=== PATIENT | male | born 1960 | race American Indian/Alaskan Native ===

== ENCOUNTER 2017-06-05 19:00 | Inpatient (IN) | payer OTHER ==
--- NOTE | 2017-06-05 23:46 | Emergency Department Report ---
ED Extremity Problem HPI - General Chief complaint: Wound/Laceration Stated complaint: INFECTED FOOT Time Seen by Provider: 06/05/17 22:03 Source: patient Mode of arrival: Ambulatory Limitations: No Limitations - History of Present Illness Initial comments: Pt presents to ED with worsening of swelling of left leg and foot. Pt has chronic venous insuffiency of left leg and foot. Pt has chronic ulcer on his left foot. He states hat over the last 2 days, swelling of his left leg and foot has gone worse. Pt recalls having some itching around the distal 3rd aspect of his left leg and has developed some tenderness, erythemia around site of pruritus. pt deneis SOB, no N/V/D, no fever, no chills, no rigors. Past medical hx his only significant for Hypertension MD Complaint: extremity pain, extremity swelling -: Gradual (pt has chronic swelling of his left leg and foot. Over the last 2 days, it was gone worse) -: No arthralgia, No associated dyspnea, No associated chest pain Radiation: none Severity scale (0 -10): 7 Quality: aching Consistency: constant Improves with: nothing Worsens with: nothing Associated Symptoms: rash. denies: denies other symptoms, chest pain, shortness of breath, fever, myalgias, arthralgias - Related Data Allergies Allergy/AdvReac Type Severity Reaction Status Date / Time No Known Allergies Allergy Unverified 06/05/17 20:21 ED Review of Systems ROS: Stated complaint: INFECTED FOOT Other details as noted in HPI Comment: All other systems reviewed and negative Constitutional: weakness. denies: chills, diaphoresis, fever, malaise Eyes: denies: eye pain, eye discharge, vision change ENT: denies: ear pain, throat pain, dental pain, hearing loss Respiratory: denies: cough, orthopnea, shortness of breath, wheezing Cardiovascular: denies: chest pain, palpitations, dyspnea on exertion, orthopnea , edema, syncope, paroxysmal nocturnal dyspnea Endocrine: no symptoms reported. denies: excessive sweating, flushing, intolerance to cold, increased hunger Gastrointestinal: denies: abdominal pain, nausea, vomiting, diarrhea, constipation, melena Genitourinary: denies: urgency, dysuria, frequency, hematuria, discharge Musculoskeletal: as per HPI, other (swelling of left leg and foot) Skin: as per HPI, pruritus, other (swelling of left leg and foot) Neurological: denies: headache, weakness, numbness, paresthesias, confusion ED Past Medical Hx - Past Medical History Previous Medical History?: Yes Hx Hypertension: Yes - Surgical History Past Surgical History?: Yes - Social History Smoking Status: Never Smoker ED Physical Exam - General Limitations: No Limitations General appearance: alert, in no apparent distress - Head Head exam: Present: atraumatic, normocephalic - Eye Eye exam: Present: normal appearance, PERRL, EOMI. Absent: scleral icterus, conjunctival injection, nystagmus - ENT ENT exam: Present: normal exam, normal orophraynx, mucous membranes moist - Neck Neck exam: Present: normal inspection, full ROM. Absent: tenderness, meningismus, lymphadenopathy, thyromegaly - Respiratory Respiratory exam: Present: normal lung sounds bilaterally. Absent: respiratory distress, wheezes, rales, rhonchi, chest wall tenderness, accessory muscle use, decreased breath sounds, prolonged expiratory - Cardiovascular Cardiovascular Exam: Present: regular rate, normal rhythm, normal heart sounds. Absent: bradycardia, tachycardia, systolic murmur, diastolic murmur - GI/Abdominal GI/Abdominal exam: Present: soft, normal bowel sounds. Absent: distended, tenderness, guarding, rebound, hyperactive bowel sounds, hypoactive bowel sounds , organomegaly, mass - Rectal Rectal exam: Present: deferred - Expanded Lower Extremity Exam Left Hip exam: Present: normal inspection, full ROM. Absent: tenderness, laceration , ecchymosis Upper Leg exam: Present: normal inspection, full ROM. Absent: abrasion, laceration Knee exam: Present: full ROM, swelling. Absent: normal inspection, abrasion, laceration, erythema, effusion Lower Leg exam: Present: tenderness, swelling (lymphedema of left leg and foot) , erythema. Absent: deformity, crepidus Ankle exam: Present: tenderness, swelling (lymphedema of left ankle) Foot/Toe exam: Present: tenderness, swelling (left great toe is swollen it ulcers seen on it), erythema. Absent: amputation, calcaneal tenderness Neuro vascular tendon exam: Present: pulse deficit (decrease dorsalis pedis pulses, left foot), abnormal cap refill, pallor - Neurological Exam Neurological exam: Present: alert, oriented X3, CN II-XII intact ED Course Vital Signs 06/05/17 20:00 Temperature 98.7 F Pulse Rate 80 Respiratory 18 Rate Blood Pressure 150/73 O2 Sat by Pulse 99 Oximetry - Consultations Consultation #1: 06/06/17 01:[address] Davalos, she accepts pt's admission ED Medical Decision Making - Lab Data Result diagrams: 06/05/17 23:31 06/05/17 23:31 - Radiology Data Radiology results: report reviewed, image reviewed Critical Care Time: No Critical care attestation.: If time is entered above; I have spent that time in minutes in the direct care of this critically ill patient, excluding procedure time. ED Disposition Clinical Impression: Osteomyelitis of toe of left foot, Cellulitis of left leg Disposition: OP ADMIT IP TO THIS HOSP Is pt being admited?: Yes Does the pt Need Aspirin: No Condition: Stable Referrals: PRIMARY CARE, [Primary Care Provider] - 3-5 Days Time of Disposition: 01:37
[2017-06-06 00:03] LABS: Basophils % (Auto) 2.2 % (0.0-1.8); Hematocrit 40.9 % (35.5-45.6); Hemoglobin 13.7 gm/dl (11.8-15.2); Mean Corpuscular HGB Conc 34 % (32-34); Mean Corpuscular Hemoglobin 29 pg (28-32); Mean Corpuscular Volume 87 fl (84-94); Platelet Count 427 K/mm3 (140-440); Red Blood Count 4.71 M/mm3 (3.65-5.03); Red Cell Distribution Width 13.5 % (13.2-15.2); White Blood Count 10.6 K/mm3 (4.5-11.0)
[2017-06-06 00:10] LABS: Alanine Aminotransferase 14 units/L (7-56); Albumin 3.7 g/dL (3.9-5); Albumin/Globulin Ratio 0.8 %; Alkaline Phosphatase 83 units/L (35-129); Anion Gap 20 mmol/L; BUN/Creatinine Ratio 16; Blood Urea Nitrogen 18 mg/dL (9-20); Calcium 9.3 mg/dL (8.4-10.2); Carbon Dioxide 26 mmol/L (22-30); Glucose 95 mg/dL (75-100); Potassium 4.6 mmol/L (3.6-5.0); Sodium 143 mmol/L (137-145); Total Protein 8.2 g/dL (6.3-8.2)
--- NOTE | 2017-06-06 00:49 | XRay Report ---
FINAL REPORT EXAM: XR TIBIA FIBULA 2V LT HISTORY: infection, swelling of left foot AND LEG TECHNIQUE: Tibia-fibula left two views 4 images PRIORS: None. FINDINGS: Bone mineralization appears within normal limits. No acute fracture or subluxation is identified. Soft tissue swelling is seen over the distal left leg and ankle. IMPRESSION: 1. No acute osseous abnormality is identified. 2. There is soft tissue swelling in the left leg and ankle. This may be related to cellulitis given the history provided.
--- NOTE | 2017-06-06 00:53 | XRay Report ---
FINAL REPORT EXAM: XR FOOT 3+V LT HISTORY: SWOLLEN, INFECTED LEFT FOOT, let great toe infecti TECHNIQUE: Left foot three views 3 images PRIORS: None. FINDINGS: Bone mineralization appears within normal limits. There is loss of cortical bone in the distal aspect of the distal 1st phalanx. There is diffuse soft tissue swelling which appears worse in the great toe. IMPRESSION: 1. Findings are consistent with osteomyelitis involving the distal 1st phalanx. 2. There is diffuse soft tissue swelling in the foot extending into the toes, worst in great toe. This is consistent with infection/cellulitis.
[2017-06-06] MEDS ORDERED: VANCOMYCIN VIAL IV ONE (01:31)
[2017-06-06] MEDS ORDERED: CLEOCIN 900 MG/50 mL 900 MG/50 ML BAG IV ONE (01:35)
[2017-06-06] MEDS ORDERED: MILK OF MAGNESIA PO PRN (01:50)
[2017-06-06] MEDS ORDERED: ZOFRAN IV PRN (01:50)
[2017-06-06] MEDS ORDERED: DULCOLAX PR PRN (01:50)
[2017-06-06] MEDS ORDERED: PERCOCET 5/325 PO PRN (01:50)
[2017-06-06] MEDS ORDERED: VANCOMYCIN PHARMACY TO DOSE IV SCH (02:00)
--- NOTE | 2017-06-06 02:01 | History and Physical Report ---
History of Present Illness Date of examination: 06/06/17 History of present illness: 57-year-old man with a history of hypertension, chronic venous insufficiency of the left foot comes emergency room because of the last 2 days he has increased swelling of the left leg. Patient states he was taking off some skin off the left great toe when he noticed the changes 2 days later. He has taken antibiotics for the left toe total of 3 times, clindamycin was the most recent, a few weeks ago. Is at the chronic ulcer of the toe for 2-1/2 years and has not completely healed. He denies fever or chills Review Of Systems: Constitutional: no weight loss Ears, eyes, nose, mouth and throat: no nasal congestion, no nasal discharge, no sinus pressure, blurry vision, diplopia Neck: No neck pain or rigidity. Cardiovascular: chest pain, orthopnea, palpitations Respiratory: No shortness of breath, cough Gastrointestinal: abdominal pain, hematochezia Genitourinary : no dysuria, frequency , hematuria Musculoskeletal: no muscle ache Integumentary: no rash, no pruritis Neurological: no parathesias, focal weakness Endocrine: no cold or heat intolerance, no polyuria or polydipsia Hematologic/Lymphatic: no easy bruising, no easy bleeding, no gland swelling Allergic/Immunologic: no urticaria, no angioedema. PAST MEDICAL HISTORY: hypertension PAST SURGICAL HISTORY:hernia repair FAIMLY HISTORY: hypertension SOCIAL HISTORY: Denies alcohol, tobacco, drugs Medications and Allergies Allergies Allergy/AdvReac Type Severity Reaction Status Date / Time No Known Allergies Allergy Verified 06/06/17 02:49 Active Meds: Active Medications Acetaminophen (Tylenol) 650 mg PO Q4H PRN PRN Reason: Pain MILD(1-3)/Fever >100.5/SANTIAGO Bisacodyl (Dulcolax) 10 mg [place] QDAY PRN PRN Reason: Constipation unrelieved by MOM Enoxaparin Sodium (Lovenox) 30 mg SUB-Q QDAY [facility] Clindamycin HCl (Cleocin 900 Mg/50 Ml) 900 mg in 50 mls @ 100 mls/hr IV ONCE ONE Stop: 06/06/17 02:04 Vancomycin HCl 2,000 mg/ (Sodium Chloride) 520 mls @ 250 mls/hr IV Q12H [facility] Vancomycin HCl (Vancomycin/Ns 1 Gm/250 Ml) 1 gm in 250 mls @ 167.007 mls/hr IV Q12H [facility] PRN Reason: Protocol Magnesium Hydroxide (Milk Of Magnesia) 30 ml PO Q4H PRN PRN Reason: Constipation Ondansetron HCl (Zofran) 4 mg IV Q8H PRN PRN Reason: N/V unrelieved by Reglan Oxycodone/Acetaminophen (Percocet 5/325) 1 tab PO Q6H PRN PRN Reason: Pain, Moderate (4-6) Vancomycin HCl (Vancomycin Pharmacy To Dose) 1 each IV PKCONSULT JOHNATHON PRN Reason: Protocol Exam - Physical Exam Narrative exam: Gen. appearance: Patient lying in bed in no acute distress HEENT: Normocephalic/atraumatic, pupils equal round reactive to light, extra alkaline movement intact, no scleral icterus, no JVD or thyromegaly or nodule, neck is supple, mucous membrane moist, no erythema or exudate Heart: S1-S2, regular rate and rhythm Lungs: Clear to auscultation bilateral breathing comfortable Abdomen: Positive bowel sounds, nontender, nondistended, no organomegaly Extremities: Left leg diffusely swollen, anterior leg warmth to touch, discolored, let great toe swolle, + ulcer Neuro:: Oriented 3 , cranial nerves II-12 intact, speech, motor intact Skin: No rash, nodules, warm dry - Constitutional Vitals: Temp Pulse Resp BP Pulse Ox 98.7 F 80 18 150/73 99 06/05/17 20:00 06/05/17 20:00 06/05/17 20:00 06/05/17 20:00 06/05/17 20:00 Results - Labs CBC & Chem 7: 06/07/17 04:20 06/07/17 04:20 Labs: Abnormal lab results 06/05/17 06/05/17 Range/Units 23:31 23:31 [place] % (Auto) 11.0 H (0.0-7.3) % Baso % (Auto) 2.2 H (0.0-1.8) % [place] # 1.2 H (0.0-0.8) K/mm3 Baso # 0.2 H (0.0-0.1) K/mm3 Albumin 3.7 L (3.9-5) g/dL Assessment and Plan xray of foot, tibula/fibula reviewed Assessment Cellulitis of the left leg Osteomyelitis of the left great toe Venous insufficiency Hypertension Plan Admit to medicine Start Iv vancomycin, follow cultures Consult ID, start percocet, DVT prophalaxis follw dopple of leg
[2017-06-06] MEDS ORDERED: APRESOLINE IV PRN ×2 (02:04→02:22)
[2017-06-06] MEDS: VANCOMYCIN 2,000 MG in NACL 0.9% 500 ML 500 ML IV SCH ×2 (04:24→15:13)
[2017-06-06] MEDS: LOVENOX SUB-Q SCH (09:49)
[2017-06-06] MEDS ORDERED: VANCOMYCIN/NS 1 GM/250 ML 1 GM/250 ML BAG IV SCH (14:00)
--- NOTE | 2017-06-06 16:11 | Event Note ---
Date: 06/06/17 Patient seen and examined Continue to complain of left foot swelling Noted extra findings significant for left foot osteomyelitis A continue present antibiotics, will obtain MRI of left foot and orthopedic consult We'll continue further assessment and plan as dictated in H&P
[2017-06-06] MEDS ORDERED: ANTIVERT PO PRN (16:32)
[2017-06-07] MEDS: VANCOMYCIN 2,000 MG in NACL 0.9% 500 ML 500 ML IV SCH ×2 (04:07→16:52)
[2017-06-07 04:52] LABS: Basophils % (Auto) 2.2 % (0.0-1.8); Eosinophils % (Auto) 4.3 % (0.0-4.3); Hematocrit 37.5 % (35.5-45.6); Hemoglobin 12.8 gm/dl (11.8-15.2); Mean Corpuscular HGB Conc 34 % (32-34); Mean Corpuscular Hemoglobin 29 pg (28-32); Mean Corpuscular Volume 86 fl (84-94); Platelet Count 380 K/mm3 (140-440); Red Blood Count 4.35 M/mm3 (3.65-5.03); Red Cell Distribution Width 13.2 % (13.2-15.2); White Blood Count 8.1 K/mm3 (4.5-11.0)
[2017-06-07 05:09] LABS: Anion Gap 16 mmol/L; BUN/Creatinine Ratio 14; Blood Urea Nitrogen 14 mg/dL (9-20); Calcium 8.3 mg/dL (8.4-10.2); Carbon Dioxide 25 mmol/L (22-30); Glucose 116 mg/dL (75-100); Potassium 4.1 mmol/L (3.6-5.0); Sodium 143 mmol/L (137-145)
[2017-06-07] MEDS ORDERED: NACL ONE (10:02)
--- NOTE | 2017-06-07 10:06 | Vascular Lab Report ---
Left Lower Extremity Venous Duplex Study: Reason for Exam: Swelling of the left lower extremity. Comments on the Right: A limited duplex study was done of the proximal veins of the right lower extremity. All veins visualized are freely compressible without evidence of internal echogenicity. Flow is spontaneous and phasic throughout. No evidence of acute or chronic thrombus is seen in any of the vessels visualized. Comments on the Left: All veins visualized are freely compressible without evidence of internal echogenicity. Flow is spontaneous and phasic throughout. No evidence of acute or chronic thrombus is seen in any of the vessels visualized. Impression: No evidence of acute or chronic deep venous thrombosis in the left lower extremity.
--- NOTE | 2017-06-07 12:21 | Cat Scan Report ---
CT LOWER EXTREMITY LEFT WITH CONTRAST History: Osteomyelitis of left foot. Technique: Helical CT following IV contrast through the left ankle and foot. Sagittal and coronal reformatted images. Findings: Correlation is made with a left foot films dated 06/05/17. There is diffuse nonspecific soft tissue swelling in the distal left lower extremity. No soft tissue gas or encapsulated abscess. There is bony destruction of the distal phalanx of the great toe consistent with osteomyelitis. There is suggestion of unorganized fluid adjacent to the distal tip in the great toe which may represent a very early abscess. This measures less than 1 cm. The remaining only structures are intact. No additional areas of osteomyelitis are suspected. Impression: Osteomyelitis, distal phalanx, left great toe. Please see above. Cellulitis.
[2017-06-07] MEDS: LOVENOX SUB-Q SCH (12:38)
[2017-06-07] MEDS: ZOSYN/NS 4.5GM/100ML 4.5 GM/100 ML VIAL IV SCH ×2 (12:40→23:55)
[2017-06-07] MEDS ORDERED: ZOSYN/NS 3.375GM/50ML 3.375 GM/50 ML BAG IV SCH (14:00)
--- NOTE | 2017-06-07 16:42 | Progress Note ---
Assessment and Plan /Cellulitis of the left leg - cont van and zosyn - blood cx negative - negative DVT on venous doppler /Osteomyelitis of the left great toe - f/u Ct leg to ensure extent of the infection - ortho consulted /Hypertension - monitor off BP med now /DVT prophalaxis - lovenox Brief History: 57-year-old man with a history of hypertension, chronic venous insufficiency of the left foot comes emergency room because of the last 2 days he has increased swelling of the left leg. Subjective Date of service: 06/07/17 Interval history: Pt seen and examined Could not do MRI as his leg/foot did not fit in the machine Got CT leg w/contrast today states swelling has gone down Objective - Exam Narrative Exam: Gen. appearance: Patient lying in bed in no acute distress HEENT: Normocephalic/atraumatic, pupils equal round reactive to light, extra alkaline movement intact, no scleral icterus, no JVD or thyromegaly or nodule, neck is supple, mucous membrane moist, no erythema or exudate Heart: S1-S2, regular rate and rhythm Lungs: Clear to auscultation bilateral breathing comfortable Abdomen: Positive bowel sounds, nontender, nondistended, no organomegaly Extremities: Left leg diffusely swollen, anterior leg warmth to touch, discolored, let great toe swolle, + ulcer Neuro:: Oriented 3 , cranial nerves II-12 intact, speech, motor intact Skin: No rash, nodules, warm dry - Constitutional Vitals: Vital Signs - 12hr 06/07/17 06/07/17 06/07/17 07:51 12:24 15:22 Temperature 98.7 F 98.8 F 99.8 F H Pulse Rate 84 77 Respiratory 18 20 22 Rate Blood Pressure 150/90 147/96 148/85 O2 Sat by Pulse 98 99 Oximetry - Labs CBC & Chem 7: 06/07/17 04:20 06/07/17 04:20 Labs: Abnormal lab results 06/07/17 06/07/17 Range/Units 04:20 04:20 [place] % (Auto) 11.6 H (0.0-7.3) % Baso % (Auto) 2.2 H (0.0-1.8) % [place] # 0.9 H (0.0-0.8) K/mm3 Baso # 0.2 H (0.0-0.1) K/mm3 Glucose 116 H (75-100) mg/dL Calcium 8.3 L (8.4-10.2) mg/dL
[2017-06-08] MEDS: VANCOMYCIN 2,000 MG in NACL 0.9% 500 ML 500 ML IV SCH ×2 (03:41→17:49)
[2017-06-08] MEDS: TYLENOL PO PRN ×2 (04:25→14:00)
[2017-06-08] MEDS: ZOSYN/NS 4.5GM/100ML 4.5 GM/100 ML VIAL IV SCH ×3 (06:51→21:00)
[2017-06-08] MEDS: LOVENOX SUB-Q SCH (14:00)
--- NOTE | 2017-06-08 18:58 | Consultation ---
History of Present Illness - HPI Consult date: 06/08/17 Consult reason: joint pain History of present illness: 57 y/o male with c/o right great toe swelling and deformity for past 3 yrs, denies hx of DM,trauma or infections in past Medications and Allergies Allergies Allergy/AdvReac Type Severity Reaction Status Date / Time No Known Allergies Allergy Verified 06/06/17 02:49 Active Meds: Active Medications Acetaminophen (Tylenol) 650 mg PO Q4H PRN PRN Reason: Pain MILD(1-3)/Fever >100.5/SANTIAGO Last Admin: 06/08/17 14:00 Dose: 650 mg Bisacodyl (Dulcolax) 10 mg [place] QDAY PRN PRN Reason: Constipation unrelieved by MOM Enoxaparin Sodium (Lovenox) 40 mg SUB-Q QDAY [facility] Last Admin: 06/08/17 14:00 Dose: 40 mg Hydralazine HCl (Apresoline) 5 mg IV Q6H PRN PRN Reason: Hypertension Vancomycin HCl 2,000 mg/ (Sodium Chloride) 520 mls @ 250 mls/hr IV Q12H [facility] Last Admin: 06/08/17 17:49 Dose: 250 mls/hr Piperacillin Sod/Tazobactam Sod (Zosyn/Ns 4.5gm/100ml) 4.5 gm in 100 mls @ 200 mls/hr IV Q8H [facility] Last Admin: 06/08/17 13:59 Dose: 200 mls/hr Magnesium Hydroxide (Milk Of Magnesia) 30 ml PO Q4H PRN PRN Reason: Constipation Ondansetron HCl (Zofran) 4 mg IV Q8H PRN PRN Reason: N/V unrelieved by Reglan Oxycodone/Acetaminophen (Percocet 5/325) 1 tab PO Q6H PRN PRN Reason: Pain, Moderate (4-6) Vancomycin HCl (Vancomycin Pharmacy To Dose) 1 each IV PKCONSULT JOHNATHON PRN Reason: Protocol Physical Examination - Physical exam Narrative exam: right foot - ++ deformity at 1st toe with enlarged great toe, chronic skin changes, no erythema noted Assessment and Plan assessment - chronic venous insufficiency left LE chronic osteomyelitis 1st toe plan- may require bone biopsy to ID cause of bony changes
--- NOTE | 2017-06-08 19:32 | Progress Note ---
Assessment and Plan /Cellulitis of the left leg - cont van and zosyn - blood cx negative - negative DVT on venous doppler /Osteomyelitis of the left great toe - CT LLE showed left great toe distal phalanx osteomylitis - ortho consulted and recommended bone biopsy - will wait for ID recommendation /Hypertension - monitor off BP med now /Chronic LLE venous insufficiency -monitor clinically, on diuretics on home meds /DVT prophalaxis - lovenox Brief History: 57-year-old man with a history of hypertension, chronic venous insufficiency of the left foot comes emergency room because of the last 2 days he has increased swelling of the left leg. Subjective Date of service: 06/08/17 Interval history: Pt seen and examined states LE swelling has gone down concern if he will need any amputation tolerating diet, ambulatory Objective - Exam Narrative Exam: Gen. appearance: Patient lying in bed in no acute distress HEENT: Normocephalic/atraumatic, pupils equal round reactive to light, extra alkaline movement intact, no scleral icterus, no JVD or thyromegaly or nodule, neck is supple, mucous membrane moist, no erythema or exudate Heart: S1-S2, regular rate and rhythm Lungs: Clear to auscultation bilateral breathing comfortable Abdomen: Positive bowel sounds, nontender, nondistended, no organomegaly Extremities: Left leg diffusely swollen, anterior leg warmth to touch, discolored, let great toe swolle, + ulcer Neuro:: Oriented 3 , cranial nerves II-12 intact, speech, motor intact Skin: No rash, nodules, warm dry - Constitutional Vitals: Vital Signs - 12hr 06/08/17 06/08/17 06/08/17 07:48 10:00 15:06 Temperature 98.6 F 97.4 F L Pulse Rate 72 75 Respiratory 20 20 Rate Blood Pressure 131/78 137/86 O2 Sat by Pulse 96 95 98 Oximetry - Labs CBC & Chem 7: 06/07/17 04:20 06/07/17 04:20
[2017-06-09] MEDS: TYLENOL PO PRN ×3 (01:09→23:16)
[2017-06-09 01:32] LABS: Hematocrit 41.5 % (35.5-45.6); Hemoglobin 14.1 gm/dl (11.8-15.2); Mean Corpuscular HGB Conc 34 % (32-34); Mean Corpuscular Hemoglobin 29 pg (28-32); Mean Corpuscular Volume 86 fl (84-94); Platelet Count 389 K/mm3 (140-440); Red Blood Count 4.82 M/mm3 (3.65-5.03); Red Cell Distribution Width 13.6 % (13.2-15.2); White Blood Count 8.7 K/mm3 (4.5-11.0)
[2017-06-09 01:53] LABS: Anion Gap 17 mmol/L; BUN/Creatinine Ratio 12; Blood Urea Nitrogen 12 mg/dL (9-20); Calcium 8.5 mg/dL (8.4-10.2); Carbon Dioxide 22 mmol/L (22-30); Chloride 102.7 mmol/L (98-107); Glucose 99 mg/dL (75-100); Potassium 4.1 mmol/L (3.6-5.0); Sodium 138 mmol/L (137-145)
[2017-06-09] MEDS: VANCOMYCIN 2,000 MG in NACL 0.9% 500 ML 500 ML IV SCH (03:13)
[2017-06-09] MEDS: ZOSYN/NS 4.5GM/100ML 4.5 GM/100 ML VIAL IV SCH ×2 (03:13→12:40)
[2017-06-09] MEDS ORDERED: ROBITUSSIN DM PO PRN (10:00)
[2017-06-09] MEDS: LOVENOX SUB-Q SCH (11:10)
--- NOTE | 2017-06-09 11:46 | XRay Report ---
Single view chest: History: Cough. Findings: Normal cardiomediastinal silhouette. Trachea is midline. No consolidation, pneumothorax or pleural effusion. Impression: No acute cardiopulmonary findings.
--- NOTE | 2017-06-09 13:35 | Consultation ---
History of Present Illness - Reason for Consult Consult date: 06/09/17 osteomyelitis Requesting physician: MARILEE GALLO - History of Present Illness 57-year-old man with a history of hypertension, chronic venous insufficiency and chronic left great toe ulcer for 3 years; admitted on 06/08/17 due to 2 day- history of worsening swelling of the left great toe and foot. He has taken antibiotics for the left toe total of 3 times, clindamycin was the most recent, a few weeks ago. he has been admitted in the past due to same problem. Denies any diabetes, trauma or injury. Denies any recent fever, chills, N/V/D. He has tried to soak the foot on water several times and noted some improvement. He has never received IV antibitoics. In the emergency room, his temperature was 98.7, blood pressure 150/73, initial white count 10.6, creatinine 1.1, A1c 5.8. X-ray of the foot showed first great toe osteomyelitis and soft tissue swelling. CT of the foot showed left great toe osteomyelitis and some soft tissue swelling. Ultrasound did not show any stenosis. Microbiology: Blood cultures: 06/08 ngtd Current Antimicrobials: Zosyn 06/07 Vancomycin 06/06 Past History Past Medical History: hypertension, other (venous insuficiency). denies: HIV/ AIDS Past Surgical History: No surgical history Social history: no significant social history. denies: smoking, alcohol abuse, prescription drug abuse, IV drug use Family history: no significant family history Medications and Allergies Allergies Allergy/AdvReac Type Severity Reaction Status Date / Time No Known Allergies Allergy Verified 06/06/17 02:49 Active Meds: Active Medications Acetaminophen (Tylenol) 650 mg PO Q4H PRN PRN Reason: Pain MILD(1-3)/Fever >100.5/SANTIAGO Last Admin: 06/09/17 11:18 Dose: 650 mg Bisacodyl (Dulcolax) 10 mg [place] QDAY PRN PRN Reason: Constipation unrelieved by MOM Enoxaparin Sodium (Lovenox) 40 mg SUB-Q QDAY [facility] Last Admin: 06/09/17 11:10 Dose: 40 mg Guaifenesin (Robitussin Dm) 20 ml PO Q4H PRN PRN Reason: Cough Hydralazine HCl (Apresoline) 5 mg IV Q6H PRN PRN Reason: Hypertension Vancomycin HCl 2,000 mg/ (Sodium Chloride) 520 mls @ 250 mls/hr IV Q12H [facility] Last Admin: 06/09/17 03:13 Dose: 250 mls/hr Piperacillin Sod/Tazobactam Sod (Zosyn/Ns 4.5gm/100ml) 4.5 gm in 100 mls @ 200 mls/hr IV Q8H [facility] Last Admin: 06/09/17 12:40 Dose: 200 mls/hr Magnesium Hydroxide (Milk Of Magnesia) 30 ml PO Q4H PRN PRN Reason: Constipation Ondansetron HCl (Zofran) 4 mg IV Q8H PRN PRN Reason: N/V unrelieved by Reglan Oxycodone/Acetaminophen (Percocet 5/325) 1 tab PO Q6H PRN PRN Reason: Pain, Moderate (4-6) Vancomycin HCl (Vancomycin Pharmacy To Dose) 1 each IV PKCONSULT JOHNATHON PRN Reason: Protocol Review of Systems All systems: negative (as per HPI) Physical Examination - Physical Exam Narrative exam: General appearance: Alert in NAD, conversant Eyes: anicteric sclerae, moist conjunctivae; no lid-lag; PERRLA HENT: Atraumatic; oropharynx clear with moist mucous membranes and no mucosal ulcerations/no oral thrush; normal hard and soft palate. Normal external ears. Neck: Trachea midline; supple, no thyromegaly or lymphadenopathy Lungs: CTA, with normal respiratory effort and no intercostal retractions CV: RRR, no murmurs Abdomen: Soft, non-tender; no masses or hepatosplenomegaly Extremities: marked left great toe swelling, deformity and ulcer on the tip, no drainage. Elvin toes swelling / desquamation. Skin: Normal temperature, turgor and texture; no rash, ulcers or subcutaneous nodules Psych: Appropriate affect, alert and oriented to person, place and time. Neuro: alert and oriented x 3. Moving all extermities Lines: No CVL / PICC - Constitutional Vitals: Vital Signs Temp Pulse Resp BP Pulse Ox 98.4 F 94 H 20 153/100 98 06/09/17 07:58 06/09/17 00:31 06/09/17 07:58 06/09/17 07:58 06/09/17 00:31 Temperature -Last 24 Hours Temperature 98.4 F Temperature 99.2 F Temperature 97.4 F Results - Labs CBC & Chem 7: 06/09/17 01:17 06/09/17 01:17 Assessment and Plan Assessment: 1) Left great toe ulcer / chronic osteomyelitis 2) ? Peripheral Neuropathy of unclear etiology Plan: -stop zosyn and vanco for now to increase the yield of bone tissue culture / biopsy -check CRP -follow-up blood cultures -wound care consult -upon discharge he will need a PICC line for IV antibiotics for [address] Gallo for your consultation, will follow up with you. Cathi Garcia MD Infectious Diseases Specialist [facility] ([facility] M [phone] O [phone]
--- NOTE | 2017-06-09 14:10 | Progress Note ---
Assessment and Plan Assessment and plan: 57 year old -[place] male presented to the emergency department complaining of on and off swelling and ulceration of the left big toe. He is also complaining cough and shortness of breath Osteomyelitis of the left big Toe - Patient was on IV antibiotics - ID was consulted and recommended to discontinue his IV antibiotics until we get bone culture - Orthopedic surgeon was consulted and agree with the management plan CHF, chronic unspecified - Patient is complaining of breath, dry cough and history of leg swelling - He is on Lasix by his primary care physician - I'm going to do chest x-ray and echo Uncontrolled hypertension - Patient stopped his amlodipine and HCTZ - We'll monitor DM type II - Accu-check, blood sugar is within normal limit - We'll do hemoglobin A1c - We'll put him on a sliding scale if needed DVT prophylaxis -Enoxaparin Disposition - Continue inpatient care for bone biopsy History Interval history: And evaluated this morning, he is complaining left big toe pain, cough and shortness of breath. Hospitalist Physical - Physical exam Narrative exam: Not in cardiopulmonary distress. The patient is obese. Vital signs as documented. Head exam is unremarkable. No scleral icterus . Neck is without jugular venous distension, thyromegaly, or carotid bruits. Lungs are clear to auscultation. Cardiac exam reveals regular rate and Rhythm. Abdominal exam reveals normal bowel sounds. Extremities lingual of the left big toe. SENIOR PROPERTY MANAGER: Alert and oriented 3. No focal weakness. - Constitutional Vitals: Temp Pulse Resp BP Pulse Ox 98.4 F 94 H 20 153/100 98 06/09/17 07:58 06/09/17 00:31 06/09/17 07:58 06/09/17 07:58 06/09/17 00:31 Results - Labs CBC & Chem 7: 06/09/17 01:17 06/09/17 01:17 Labs: Laboratory Last Values WBC 8.7 K/mm3 (4.5-11.0) 06/09/17 01:17 RBC 4.82 M/mm3 (3.65-5.03) 06/09/17 01:17 Hgb 14.1 gm/dl (11.8-15.2) 06/09/17 01:17 Hct 41.5 % (35.5-45.6) 06/09/17 01:17 MCV 86 fl (84-94) 06/09/17 01:17 MCH 29 pg (28-32) 06/09/17 01:17 MCHC 34 % (32-34) 06/09/17 01:17 RDW 13.6 % (13.2-15.2) 06/09/17 01:17 Plt Count 389 K/mm3 (140-440) 06/09/17 01:17 Lymph % (Auto) 18.9 % (13.4-35.0) 06/07/17 04:20 Oliver % (Auto) 11.6 % (0.0-7.3) H 06/07/17 04:20 Eos % (Auto) 4.3 % (0.0-4.3) 06/07/17 04:20 Baso % (Auto) 2.2 % (0.0-1.8) H 06/07/17 04:20 Lymph # 1.5 K/mm3 (1.2-5.4) 06/07/17 04:20 Oliver # 0.9 K/mm3 (0.0-0.8) H 06/07/17 04:20 Eos # 0.4 K/mm3 (0.0-0.4) 06/07/17 04:20 Baso # 0.2 K/mm3 (0.0-0.1) H 06/07/17 04:20 Seg Neutrophils % 63.0 % (40.0-70.0) 06/07/17 04:20 Seg Neutrophils # 5.1 K/mm3 (1.8-7.7) 06/07/17 04:20 Sodium 138 mmol/L (137-145) 06/09/17 01:17 Potassium 4.1 mmol/L (3.6-5.0) 06/09/17 01:17 Chloride 102.7 mmol/L (98-107) 06/09/17 01:17 Carbon Dioxide 22 mmol/L (22-30) 06/09/17 01:17 Anion Gap 17 mmol/L 06/09/17 01:17 BUN 12 mg/dL (9-20) 06/09/17 01:17 Creatinine 1.0 mg/dL (0.8-1.5) 06/09/17 01:17 Estimated GFR > 60 ml/min 06/09/17 01:17 BUN/Creatinine Ratio 12 % 06/09/17 01:17 Glucose 99 mg/dL (75-100) 06/09/17 01:17 Hemoglobin A1c 5.8 % (4-6) 06/09/17 01:27 Lactic Acid 1.90 mmol/L (0.7-2.0) 06/05/17 23:31 Calcium 8.5 mg/dL (8.4-10.2) 06/09/17 01:17 Total Bilirubin 0.30 mg/dL (0.1-1.2) 06/05/17 23:31 AST 13 units/L (5-40) 06/05/17 23:31 ALT 14 units/L (7-56) 06/05/17 23:31 Alkaline Phosphatase 83 units/L (35-129) 06/05/17 23:31 NT-Pro-B Natriuret Pep 584.2 pg/mL (0-900) 06/05/17 23:31 Total Protein 8.2 g/dL (6.3-8.2) 06/05/17 23:31 Albumin 3.7 g/dL (3.9-5) L 06/05/17 23:31 Albumin/Globulin Ratio 0.8 % 06/05/17 23:31 Vancomycin Trough 15.8 ug/mL (5.0-20.0) 06/08/17 14:38
[2017-06-09] MEDS: HCTZ PO SCH (16:14)
[2017-06-09] MEDS: NORVASC PO SCH (16:15)
[2017-06-10] MEDS: TYLENOL PO PRN ×2 (03:01→14:38)
--- NOTE | 2017-06-10 11:32 | Consultation ---
History of Present Illness Consult date: 06/10/17 Consult reason: congestive heart failure History of present illness: This is a 57yr old male who presented 06/05 with complaints of unilateral lower extremity edema and admitted for further workup. CT of left lower extremity reports cellulitis of LLE and osteomyelitis of left great toe. LLE venous duplex was negative for acute DVT. An echocardiogram was done with reports of moderate to severe mitral regurgitation, moderate pulmonary hypertension; decreased left ventricular systolic function, ejection fraction 15-20%. Cardiology consultation was requested for further evaluation CHF of unknown duration. Patient gives a history of Hypertension and admits to noncompliance with medications. He denies prior a cardiac history. He denies prior cardiac workup. Patient reports intermittent shortness of breath and fatigue over the last few months relieved when he used family member inhalers and diuretics. There is no report of chest pain. Past History Past Medical History: hypertension, other (venous insuficiency) Social history: no significant social history. denies: smoking, alcohol abuse, prescription drug abuse, IV drug use Family history: no significant family history Medications and Allergies Allergies Allergy/AdvReac Type Severity Reaction Status Date / Time No Known Allergies Allergy Verified 06/06/17 02:49 Home Medications Medication Instructions Recorded Confirmed Last Taken Type Clindamycin 150 mg PO TID 06/09/17 06/09/17 06/05/17 History Diuril Oral Liq 2 ml PO BID 06/09/17 06/09/17 06/05/17 History Furosemide 40 mg PO DAILY 06/09/17 06/09/17 06/05/17 History Lisinopril 20 mg PO DAILY 06/09/17 06/09/17 06/05/17 History Metformin HCl 500 mg PO BID 06/09/17 06/09/17 06/05/17 History Norvasc 5 mg PO DAILY 06/09/17 06/09/17 06/05/17 History Potassium Citrate ER 20 mg PO DAILY 06/09/17 06/09/17 06/05/17 History Active Meds: Active Medications Acetaminophen (Tylenol) 650 mg PO Q4H PRN PRN Reason: Pain MILD(1-3)/Fever >100.5/S[place] Last Admin: 06/10/17 03:01 Dose: 650 mg Amlodipine Besylate (Norvasc) 10 mg PO QDAY [facility] Last Admin: 06/09/17 16:15 Dose: 10 mg Bisacodyl (Dulcolax) 10 mg [place] QDAY PRN PRN Reason: Constipation unrelieved by MOM Enoxaparin Sodium (Lovenox) 40 mg SUB-Q QDAY [facility] Last Admin: 06/09/17 11:10 Dose: 40 mg Guaifenesin (Robitussin Dm) 20 ml PO Q4H PRN PRN Reason: Cough Hydrochlorothiazide (Hctz) 25 mg PO QDAY [facility] Last Admin: 06/09/17 16:14 Dose: 25 mg Magnesium Hydroxide (Milk Of Magnesia) 30 ml PO Q4H PRN PRN Reason: Constipation Ondansetron HCl (Zofran) 4 mg IV Q8H PRN PRN Reason: N/V unrelieved by Reglan Oxycodone/Acetaminophen (Percocet 5/325) 1 tab PO Q6H PRN PRN Reason: Pain, Moderate (4-6) Physical Examination Vital Signs Resp BP 18 150/73 06/05/17 19:45 06/05/17 19:45 General appearance: no acute distress HEENT: Positive: PERRL Neck: Positive: trachea midline Cardiac: Positive: Reg Rate and Rhythm Lungs: Positive: Decreased Breath Sounds Neuro: Positive: Grossly Intact Extremities: Present: edema (left lower extremity) Results 06/09/17 01:17 06/09/17 01:17 Assessment and Plan Cellulitis of Left lower extremity Osteomyelitis of left great toe Dilated Cardiomyopathy, new onset EF 15-20% on echo this admission Hypertension
[2017-06-10] MEDS: LOVENOX SUB-Q SCH (11:52)
[2017-06-10] MEDS: HCTZ PO SCH (11:53)
[2017-06-10] MEDS: NORVASC PO SCH (11:54)
--- NOTE | 2017-06-10 13:40 | Progress Note ---
Assessment and Plan Assessment: 1) Left great toe ulcer / chronic osteomyelitis: CRP=0.3 2) ? Peripheral Neuropathy of unclear etiology Plan: -hold off broad spectrum antibiotics for now until bone tissue culture / biopsy -follow-up blood cultures -wound care consult -upon discharge he will need a PICC line for IV antibiotics for 6 weeks. Preliminary IV abx- daptomycin 700 mg IV q day and levaquin 750 mg PO qday total 6 weeks -discussed with immigration case manager Thank you Dr Elliott for your consultation, will follow up with you. Cathi Garcia MD Infectious Diseases Specialist [facility] ([facility]) M [phone] O [phone] Subjective Date of service: 06/10/17 Principal diagnosis: osteomyelitis Interval history: Feels ok no complaints. no fever. Microbiology: Blood cultures: 06/08 ngtd Current Antimicrobials: none Previous antibiotics: Zosyn 06/07 Vancomycin 06/06 Objective - Exam Narrative Exam: General appearance: Alert in NAD, conversant Eyes: anicteric sclerae, moist conjunctivae; no lid-lag; PERRLA HENT: Atraumatic; oropharynx clear with moist mucous membranes and no mucosal ulcerations/no oral thrush; normal hard and soft palate. Normal external ears. Neck: Trachea midline; supple, no thyromegaly or lymphadenopathy Lungs: CTA, with normal respiratory effort and no intercostal retractions CV: RRR, no murmurs Abdomen: Soft, non-tender; no masses or hepatosplenomegaly Extremities: marked left great toe swelling, deformity and ulcer on the tip, no drainage. Elvin toes swelling / desquamation. Skin: Normal temperature, turgor and texture; no rash, ulcers or subcutaneous nodules Psych: Appropriate affect, alert and oriented to person, place and time. Neuro: alert and oriented x 3. Moving all extermities Lines: No CVL / PICC - Constitutional Vitals: Vital Signs Temp Pulse Resp BP Pulse Ox 98.4 F 66 24 139/72 95 06/10/17 07:06 06/10/17 11:54 06/10/17 07:06 06/10/17 11:54 06/10/17 07:06 Temperature -Last 24 Hours Temperature 98.4 F Temperature 98.6 F Temperature 98.4 F - Labs CBC & Chem 7: 06/09/17 01:17 06/09/17 01:17
--- NOTE | 2017-06-10 15:22 | Anesthesia Consultation ---
Anesthesia Consult and Med Hx Date of service: 06/10/17 - Airway Anesthetic Teeth Evaluation: Chipped (missing ) ROM Head & Neck: Adequate Mental/Hyoid Distance: Adequate Mallampati Class: Class II Intubation Access Assessment: Probably Good - Pulmonary Exam CTA: Yes - Cardiac Exam Cardiac Exam: RRR - Pre-Operative Health Status ASA Pre-Surgery Classification: ASA3 Proposed Anesthetic Plan: Local, MAC - Pre-Anesthesia Comment Pre-Anesthesia Comments: moderate to severe mitral regurgitation, moderate pulmonary hypertension, EF 15-20% - Cardiovascular System Hx Hypertension: Yes Hx Coronary Artery Disease: Yes (CHF ) Hx Peripheral Vascular Disease: Yes (LLE cellulitis. Left toe osteomylitis )
[2017-06-10 18:15] LABS: HIV-1 Antigen p24 Non React (Non React); HIVR-1/2 Ab Non React (Non React)
[2017-06-10] MEDS ORDERED: CITRATE OF MAGNESIA PO PRN (18:27)
[2017-06-10] MEDS: LASIX IV SCH (18:31)
[2017-06-10] MEDS: COREG PO SCH (23:20)
[2017-06-11] MEDS ORDERED: VERSED IV NR (06:00)
[2017-06-11] MEDS: LASIX IV SCH ×2 (06:29→17:48)
--- NOTE | 2017-06-11 06:44 | Progress Note ---
Assessment and Plan Assessment and plan: 57 year old -[place] male presented to the emergency department complaining of on and off swelling and ulceration of the left big toe. He is also complaining cough and shortness of breath Osteomyelitis of the left big Toe - Patient will have biopsy today - We held the antibiotics for now - Patient need PICC line and IV antibiotics as outpatient, per ID recommendation Chronic systolic CHF - Echo showed ejection fraction 15-20% - Cardiology consult appreciated - Ischemic workup as an outpatient - For now continue medical management Uncontrolled hypertension - Patient stopped his on lisinopril and carvedilol - We'll monitor DM type II - Hemoglobin A1C is 5.8 DVT prophylaxis -Enoxaparin Disposition - Bone biopsy today History Interval history: And evaluated this morning, patient is getting better. Hospitalist Physical - Physical exam Narrative exam: Not in cardiopulmonary distress. The patient is obese. Vital signs as documented. Head exam is unremarkable. No scleral icterus . Neck is without jugular venous distension, thyromegaly, or carotid bruits. Lungs are clear to auscultation. Cardiac exam reveals regular rate and Rhythm. Abdominal exam reveals normal bowel sounds. Extremities swelling and ulceration of the left big toe. 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 No focal weakness. - Constitutional Vitals: Temp Pulse Resp BP Pulse Ox 98.4 F 71 18 135/72 97 06/10/17 23:40 06/10/17 23:40 06/10/17 23:40 06/10/17 23:40 06/10/17 23:40 General appearance: Present: no acute distress Results - Labs CBC & Chem 7: 06/09/17 01:17 06/09/17 01:17 Labs: Laboratory Last Values WBC 8.7 K/mm3 (4.5-11.0) 06/09/17 01:17 RBC 4.82 M/mm3 (3.65-5.03) 06/09/17 01:17 Hgb 14.1 gm/dl (11.8-15.2) 06/09/17:17 Hct 41.5 % (35.5-45.6) 06/09/17 01:17 MCV 86 fl (84-94) 06/09/17:17 MCH 29 pg (28-32) 06/09/17: MCHC 34 % (32-34) 06/09/17 01:17 RDW 13.6 % (13.2-15.2) 06/09/17 01:17 Plt Count 389 K/mm3 (140-440) 06/09/17 01:17 Lymph % (Auto) 18.9 % (13.4-35.0) 06/07/17 04:20 [place] % (Auto) 11.6 % (0.0-7.3) H 06/07/17 04:20 Eos % (Auto) 4.3 % (0.0-4.3) 06/07/17 04:20 Baso % (Auto) 2.2 % (0.0-1.8) H 06/07/17 04:20 Lymph # 1.5 K/mm3 (1.2-5.4) 06/07/17 04:20 Eddy # 0.9 K/mm3 (0.0-0.8) H 06/07/17 04:20 Eos # 0.4 K/mm3 (0.0-0.4) 06/07/17 04:20 Baso # 0.2 K/mm3 (0.0-0.1) H 06/07/17 04:20 Seg Neutrophils % 63.0 % (40.0-70.0) 06/07/17 04:20 Seg Neutrophils # 5.1 K/mm3 (1.8-7.7) 06/07/17 04:20 Sodium 138 mmol/L (137-145) 06/09/17 01:17 Potassium 4.1 mmol/L (3.6-5.0) 06/09/17 01:17 Chloride 102.7 mmol/L (98-107) 06/09/17 01:17 Carbon Dioxide 22 mmol/L (22-30) 06/09/17 01:17 Anion Gap 17 mmol/L 06/09/17 01:17 BUN 12 mg/dL (9-20) 06/09/17 01:17 Creatinine 1.0 mg/dL (0.8-1.5) 06/09/17 01:17 Estimated GFR > 60 ml/min 06/09/17 01:17 BUN/Creatinine Ratio 12 % 06/09/17 01:17 Glucose 99 mg/dL (75-100) 06/09/17 01:17 Hemoglobin A1c 5.8 % (4-6) 06/09/17 01:27 Lactic Acid 1.90 mmol/L (0.7-2.0) 06/05/17 23:31 Calcium 8.5 mg/dL (8.4-10.2) 06/09/17 01:17 Total Bilirubin 0.30 mg/dL (0.1-1.2) 06/05/17 23:31 AST 13 units/L (5-40) 06/05/17 23:31 ALT 14 units/L (7-56) 06/05/17 23:31 Alkaline Phosphatase 83 units/L (35-129) 06/05/17 23:31 C-Reactive Protein 0.50 mg/dL (0.00-1.30) 06/09/17 14:24 NT-Pro-B Natriuret Pep 584.2 pg/mL (0-900) 06/05/17 23:31 Total Protein 8.2 g/dL (6.3-8.2) 06/05/17 23:31 Albumin 3.7 g/dL (3.9-5) L 06/05/17 23:31 Albumin/Globulin Ratio 0.8 % 06/05/17 23:31 TSH 2.510 mlU/mL (0.270-4.200) 06/10/17 16:23 Vancomycin Trough 15.8 ug/mL (5.0-20.0) 06/08/17 14:38 HIV 1&2 Antibody Rapid Non react (Non React) 06/10/17 16:23 HIV P24 Antigen Non react (Non React) 06/10/17 16:23
[2017-06-11] MEDS ORDERED: NACL 0.9% 1000 ML 1,000 ML IV SCH (07:00)
[2017-06-11] MEDS: ZESTRIL PO SCH (10:17)
[2017-06-11] MEDS: COREG PO SCH ×2 (10:18→22:33)
[2017-06-11] MEDS: ALDACTONE PO SCH (10:18)
[2017-06-11] MEDS: LOVENOX SUB-Q SCH (10:25)
[2017-06-11] MEDS: BABY ASPIRIN PO SCH (10:26)
--- NOTE | 2017-06-11 12:47 | Progress Note ---
Assessment and Plan Assessment: 1) Left great toe ulcer / chronic osteomyelitis: CRP=0.3 2) ? Peripheral Neuropathy of unclear etiology Plan: -hold off broad spectrum antibiotics for now until bone tissue culture / biopsy -upon discharge he will need a PICC line for IV antibiotics for 6 weeks. Preliminary IV abx- daptomycin 700 mg IV q day and levaquin 750 mg PO qday total [address] Elliott for your consultation, will follow up with you. Cathi Garcia MD Infectious Diseases Specialist [facility] ([facility]) M [phone] O [phone] Subjective Date of service: 06/11/17 Principal diagnosis: osteomyelitis Interval history: Feels ok no complaints Microbiology: Blood cultures: 06/08 ngtd Current Antimicrobials: none Previous antibiotics: Zosyn 06/07 Vancomycin 06/06 Objective - Exam Narrative Exam: General appearance: Alert in NAD, conversant Eyes: anicteric sclerae, moist conjunctivae; no lid-lag; PERRLA HENT: Atraumatic; oropharynx clear with moist mucous membranes and no mucosal ulcerations/no oral thrush; normal hard and soft palate. Normal external ears. Neck: Trachea midline; supple, no thyromegaly or lymphadenopathy Lungs: CTA, with normal respiratory effort and no intercostal retractions CV: RRR, no murmurs Abdomen: Soft, non-tender; no masses or hepatosplenomegaly Extremities: marked left great toe swelling, deformity and ulcer on the tip, no drainage. Elvin toes swelling / desquamation. Skin: Normal temperature, turgor and texture; no rash, ulcers or subcutaneous nodules Psych: Appropriate affect, alert and oriented to person, place and time. Neuro: alert and oriented x 3. Moving all extermities Lines: No CVL / PICC - Constitutional Vitals: Vital Signs Temp Pulse Resp BP Pulse Ox 98.4 F 76 18 128/78 97 06/11/17 08:27 06/11/17 08:27 06/11/17 08:27 06/11/17 10:18 06/11/17 08:27 Temperature -Last 24 Hours Temperature 98.4 F Temperature 98.4 F Temperature 76 F Temperature 97.8 F - Labs CBC & Chem 7: 06/09/17 01:17 06/09/17 01:17
--- NOTE | 2017-06-11 12:51 | Progress Note ---
Assessment and Plan Cellulitis of Left lower extremity Osteomyelitis of left great toe Dilated Cardiomyopathy, new onset EF 15-20% on echo this admission Normal TSH and Negative HIV Ab Hypertension Continue medical therapy for his dilated cardiomyopathy. Further cardiac workup with stress thallium test can be done as an outpatient. Subjective Date of service: 06/11/17 Principal diagnosis: osteomyelitis Interval history: Patient denies chest pain and shortness of breath. Objective Vital Signs Temp Pulse Resp BP BP Pulse Ox 06/11/17 10:18 128/78 06/11/17 10:17 128/78 06/11/17 08:27 98.4 F 76 18 128/78 97 06/10/17 23:40 98.4 F 71 18 135/72 97 06/10/17 23:20 72 06/10/17 15:46 76 F L 16 111/59 98 06/10/17 15:44 97.8 F 79 16 111/59 97 06/10/17 14:38 20 - Physical Examination General: No Apparent Distress HEENT: Positive: PERRL Neck: Positive: trachea midline Cardiac: Positive: Reg Rate and Rhythm Lungs: Positive: Decreased Breath Sounds Neuro: Positive: Grossly Intact Extremities: Present: edema (left lower extremity)
[2017-06-11] MEDS ORDERED: XYLOCAINE MPF 2% ONE (13:22)
[2017-06-11] MEDS ORDERED: DIPRIVAN 10 MG/ML IV ONE (13:23)
[2017-06-11] MEDS ORDERED: DILAUDID ONE (13:23)
--- NOTE | 2017-06-11 13:46 | Anesthesia Day of Surgery ---
Anesthesia Day of Surgery - Day of Surgery Patient Examined: Yes Patient H&P Reviewed: Yes Patient is NPO: Yes
[2017-06-11] MEDS ORDERED: VERSED ONE (13:54)
[2017-06-11] MEDS ORDERED: MARCAINE 0.5% 30 ML INFILTRATI ONE (14:05)
[2017-06-11] MEDS ORDERED: MARCAINE 0.5% INFILTRATI ONE ×3 (14:16)
[2017-06-11] MEDS ORDERED: ZOFRAN ONE (14:30)
--- NOTE | 2017-06-11 14:53 | Procedure Note ---
Date of procedure: 06/11/17 Post-op diagnosis: same Procedure: Procedure Debridement and irrigation left great toe Indications A 57-year-old male complains of chronic swelling and deformity at the left great toe for the past 3 years, and x-rays reveal chronic changes at the distal phalanx suggestive of osteomyelitis is being brought today to the OR for debridement irrigation and bone biopsy Procedure Patient was brought to the OR and placed in the OR table in supine position following the induction and intubation by anesthesia the patient's left lower extremity was prepped and draped in the usual sterile manner a timeout procedure was done to identify the patient and the correct operative site. Using an Esmarch bandage and the tourniquet a mid lateral incision was made along the medial border of the distal phalanx this and then taken down sharply through skin and subcutaneous down to the joint there was no pus or exudate noted A rongeur was used to obtain a bone tissue as well as soft tissue for pathological evaluation. Following irrigation the incision was closed using 3- 0 nylon. Dressings were applied the patient tolerated the procedure there were no complications Anesthesia: FRANKLIN Surgeon: NELLY KING Estimated blood loss: minimal Pathology: list (bone and soft tissue sent) Specimen disposition: to lab Condition: stable Disposition: PACU
--- NOTE | 2017-06-11 14:57 | Post Anesthesia Evaluation ---
- Post Anesthesia Evaluation Patient Participated: Yes Airway Patent: Yes Stable Respiratory Function: Yes Nausea/Vomiting: No Temp > 96.8F: Yes Pain Manageable: Yes Adequeate Hydration: Yes Anesthesia Complications: No Block Receding Appropriately: Not Applicable Patient on Ventilator: No
[2017-06-11] MEDS ORDERED: DILAUDID IV PRN (15:30)
[2017-06-11] MEDS ORDERED: ZOFRAN IV PRN (15:30)
[2017-06-12] MEDS: TYLENOL PO PRN (01:20)
[2017-06-12] MEDS: LASIX IV SCH ×2 (05:54→18:03)
[2017-06-12 06:21] LABS: Basophils % (Auto) 1.1 % (0.0-1.8); Eosinophils % (Auto) 6.6 % (0.0-4.3); Hematocrit 35.9 % (35.5-45.6); Hemoglobin 12.4 gm/dl (11.8-15.2); Mean Corpuscular HGB Conc 34 % (32-34); Mean Corpuscular Hemoglobin 30 pg (28-32); Mean Corpuscular Volume 86 fl (84-94); Platelet Count 336 K/mm3 (140-440); Red Blood Count 4.18 M/mm3 (3.65-5.03); Red Cell Distribution Width 13.3 % (13.2-15.2); White Blood Count 10.3 K/mm3 (4.5-11.0)
[2017-06-12 06:37] LABS: Calcium 8.6 mg/dL (8.4-10.2); Chloride 99.8 mmol/L (98-107); Potassium 3.6 mmol/L (3.6-5.0)
--- NOTE | 2017-06-12 08:55 | Progress Note ---
Assessment and Plan Cellulitis of Left lower extremity Osteomyelitis of left great toe s/p debridement and irrigation left great toe Dilated Cardiomyopathy, new onset EF 15-20% on echo this admission Normal TSH and Negative HIV Ab Hypertension Continue medical therapy for his dilated cardiomyopathy. Outpatient ischemic workup with Persantine thallium. Stable cardiac de leon. Subjective Date of service: 06/12/17 Principal diagnosis: osteomyelitis Interval history: Patient denies shortness of breath and chest pain. Objective Vital Signs Temp Pulse Resp BP Pulse Ox 06/12/17 08:34 98.3 F 72 18 119/66 98 06/11/17 22:47 70 06/11/17 22:33 70 129/72 06/11/17 22:28 98.4 F 18 129/72 06/11/17 16:00 97.6 F 58 L 16 120/71 97 06/11/17 15:52 97.4 F L 58 L 15 120/71 96 06/11/17 15:30 56 L 16 125/74 98 06/11/17 15:15 52 L 16 132/70 99 06/11/17 15:10 50 L 16 130/70 100 06/11/17 15:05 49 L 16 130/78 99 06/11/17 15:00 58 L 18 134/73 99 06/11/17 14:55 59 L 20 128/71 98 06/11/17 14:50 97.2 F L 70 20 120/70 99 06/11/17 13:38 98.5 F 71 20 129/67 99 06/11/17 12:45 98.5 F 71 20 129/67 99 06/11/17 10:18 128/78 06/11/17 10:17 128/78 - Physical Examination General: No Apparent Distress HEENT: Positive: PERRL Neck: Positive: trachea midline Cardiac: Positive: Reg Rate and Rhythm Neuro: Positive: Grossly Intact Extremities: Present: edema (left lower extremity) - Labs and Meds CBC 06/12/17 Range/Units 05:01 WBC 10.3 (4.5-11.0) K/mm3 RBC 4.18 (3.65-5.03) M/mm3 Hgb 12.4 (11.8-15.2) gm/dl Hct 35.9 (35.5-45.6) % Plt Count 336 (140-440) K/mm3 Lymph # 1.6 (1.2-5.4) K/mm3 [place] # 1.2 H (0.0-0.8) K/mm3 Eos # 0.7 H (0.0-0.4) K/mm3 Baso # 0.1 (0.0-0.1) K/mm3 Comprehensive Metabolic Panel 06/12/17 Range/Units 05:01 Sodium 138 (137-145) mmol/L Potassium 3.6 (3.6-5.0) mmol/L Chloride 99.8 (98-107) mmol/L Carbon Dioxide 24 (22-30) mmol/L BUN 24 H (9-20) mg/dL Creatinine 1.3 (0.8-1.5) mg/dL Glucose 96 (75-100) mg/dL Calcium 8.6 (8.4-10.2) mg/dL
[2017-06-12] MEDS: ZESTRIL PO SCH (09:41)
[2017-06-12] MEDS: COREG PO SCH ×2 (09:42→21:37)
[2017-06-12] MEDS: ALDACTONE PO SCH (09:42)
[2017-06-12] MEDS: BABY ASPIRIN PO SCH (09:42)
[2017-06-12] MEDS: LOVENOX SUB-Q SCH (09:43)
--- NOTE | 2017-06-12 11:59 | Progress Note ---
Assessment and Plan Assessment: 1) Left great toe ulcer / chronic osteomyelitis: CRP=0.3 2) ? Peripheral Neuropathy of unclear etiology Plan: -restart zosyn and vanco -pt is unfunded therefore IV antibiotics would not be an option. -upon discharge will do patient food service assistant program for zyvox (linezolid) 600 mg PO q12h and moxifloxacin 400 mg PO qday for 6 weeks to cover MRSA/GNR and anaerobes -needs CBC every 2 weeks to monitor zyvox side effects - leukopenia and thrombocytopenia -orders sent to case management assistant I am signing off Thank you Dr Elliott for your consultation, will follow up with you. Cathi Garcia MD Infectious Diseases Specialist [facility] ([facility]) M [phone] O [phone] Subjective Date of service: 06/12/17 Principal diagnosis: osteomyelitis Interval history: Feels ok no complaints Microbiology: Blood cultures: 06/08 ngtd 06/11 tissue toe pending Current Antimicrobials: none Previous antibiotics: Zosyn 06/07 Vancomycin 06/06 Objective - Exam Narrative Exam: General appearance: Alert in NAD, conversant Eyes: anicteric sclerae, moist conjunctivae; no lid-lag; PERRLA HENT: Atraumatic; oropharynx clear with moist mucous membranes and no mucosal ulcerations/no oral thrush; normal hard and soft palate. Normal external ears. Neck: Trachea midline; supple, no thyromegaly or lymphadenopathy Lungs: CTA, with normal respiratory effort and no intercostal retractions CV: RRR, no murmurs Abdomen: Soft, non-tender; no masses or hepatosplenomegaly Extremities: marked left great toe swelling, deformity and ulcer on the tip, no drainage. Elvin toes swelling / desquamation. Skin: Normal temperature, turgor and texture; no rash, ulcers or subcutaneous nodules Psych: Appropriate affect, alert and oriented to person, place and time. Neuro: alert and oriented x 3. Moving all extermities Lines: No CVL / PICC - Constitutional Vitals: Vital Signs Temp Pulse Resp BP Pulse Ox 98.3 F 72 18 119/66 98 06/12/17 08:34 06/12/17 09:41 06/12/17 08:34 06/12/17 09:41 06/12/17 08:34 Temperature -Last 24 Hours Temperature 98.3 F Temperature 98.4 F Temperature 97.6 F Temperature 97.4 F Temperature 97.2 F Temperature 98.5 F Temperature 98.5 F - Labs CBC & Chem 7: 06/12/17 05:01 06/12/17 05:01 Labs: Abnormal lab results 06/12/17 06/12/17 Range/Units 05:01 05:01 [place] % (Auto) 12.1 H (0.0-7.3) % Eos % (Auto) 6.6 H (0.0-4.3) % [place] # 1.2 H (0.0-0.8) K/mm3 Eos # 0.7 H (0.0-0.4) K/mm3 BUN 24 H (9-20) mg/dL
[2017-06-12] MEDS ORDERED: VANCOMYCIN PHARMACY TO DOSE IV SCH (12:00)
[2017-06-12] MEDS ORDERED: NACL 0.9% IV SCH (14:00)
[2017-06-12] MEDS ORDERED: VANCOMYCIN IV SCH (14:00)
[2017-06-12] MEDS: ZOSYN/NS 4.5GM/100ML 4.5 GM/100 ML VIAL IV SCH ×2 (14:43→21:37)
[2017-06-12] MEDS: VANCOMYCIN 1,500 MG in NACL 0.9% 500 ML 500 ML IV SCH (15:33)
--- NOTE | 2017-06-12 16:02 | Progress Note ---
Assessment and Plan Assessment and plan: 57 year old -[place] male presented to the emergency department complaining of on and off swelling and ulceration of the left big toe. He is also complaining cough and shortness of breath Osteomyelitis of the left big Toe - Wound culture grew staph - Harris today started with IV vancomycin and Zosyn - Patient will be discharged with Zyvox and moxifloxacin Chronic systolic CHF - Echo showed ejection fraction 15-20% - Cardiology consult appreciated - Ischemic workup as an outpatient - For now continue medical management Uncontrolled hypertension - Patient is on lisinopril and carvedilol - We'll monitor DM type II - Hemoglobin A1C is 5.8 DVT prophylaxis -Enoxaparin Disposition -Will be discharged once the medication is approved. History Interval history: And evaluated this morning, patient didn't have any complaints Hospitalist Physical - Physical exam Narrative exam: Not in cardiopulmonary distress. The patient is obese. Vital signs as documented. Head exam is unremarkable. No scleral icterus . Neck is without jugular venous distension, thyromegaly, or carotid bruits. Lungs are clear to auscultation. Cardiac exam reveals regular rate and Rhythm. Abdominal exam reveals normal bowel sounds. Extremities swelling and ulceration of the left big toe. MOTOR TUNE UP SPECIALIST: Alert and oriented 3. No focal weakness. - Constitutional Vitals: Temp Pulse Resp BP Pulse Ox 98.3 F 72 18 119/66 98 06/12/17 08:34 06/12/17 09:41 06/12/17 08:34 06/12/17 09:41 06/12/17 08:34 General appearance: Present: no acute distress Results - Labs CBC & Chem 7: 06/12/17 05:01 06/12/17 05:01 Labs: Laboratory Last Values WBC 10.3 K/mm3 (4.5-11.0) 06/12/17 05:01 RBC 4.18 M/mm3 (3.65-5.03) 06/12/17 05:01 Hgb 12.4 gm/dl (11.8-15.2) 06/12/17 05:01 Hct 35.9 % (35.5-45.6) 06/12/17 05:01 MCV 86 fl (84-94) 06/12/17 05:01 MCH 30 pg (28-32) 06/12/17 05:01 MCHC 34 % (32-34) 06/12/17 05:01 RDW 13.3 % (13.2-15.2) 06/12/17 05:01 Plt Count 336 K/mm3 (140-440) 06/12/17 05:01 Lymph % (Auto) 15.1 % (13.4-35.0) 06/12/17 05:01 Fountain % (Auto) 12.1 % (0.0-7.3) H 06/12/17 05:01 Eos % (Auto) 6.6 % (0.0-4.3) H 06/12/17 05:01 Baso % (Auto) 1.1 % (0.0-1.8) 06/12/17 05:01 Lymph # 1.6 K/mm3 (1.2-5.4) 06/12/17 05:01 Fountain # 1.2 K/mm3 (0.0-0.8) H 06/12/17 05:01 Eos # 0.7 K/mm3 (0.0-0.4) H 06/12/17 05:01 Baso # 0.1 K/mm3 (0.0-0.1) 06/12/17 05:01 Seg Neutrophils % 65.1 % (40.0-70.0) 06/12/17 05:01 Seg Neutrophils # 6.7 K/mm3 (1.8-7.7) 06/12/17 05:01 Sodium 138 mmol/L (137-145) 06/12/17 05:01 Potassium 3.6 mmol/L (3.6-5.0) 06/12/17 05:01 Chloride 99.8 mmol/L (98-107) 06/12/17 05:01 Carbon Dioxide 24 mmol/L (22-30) 06/12/17 05:01 Anion Gap 18 mmol/L 06/12/17 05:01 BUN 24 mg/dL (9-20) H 06/12/17 05:01 Creatinine 1.3 mg/dL (0.8-1.5) 06/12/17 05:01 Estimated GFR 57 ml/min 06/12/17 05:01 BUN/Creatinine Ratio 18 % 06/12/17 05:01 Glucose 96 mg/dL (75-100) 06/12/17 05:01 Hemoglobin A1c 5.8 % (4-6) 06/09/17 01:27 Lactic Acid 1.90 mmol/L (0.7-2.0) 06/05/17 23:31 Calcium 8.6 mg/dL (8.4-10.2) 06/12/17 05:01 Total Bilirubin 0.30 mg/dL (0.1-1.2) 06/05/17 23:31 AST 13 units/L (5-40) 06/05/17 23:31 ALT 14 units/L (7-56) 06/05/17 23:31 Alkaline Phosphatase 83 units/L (35-129) 06/05/17 23:31 C-Reactive Protein 0.50 mg/dL (0.00-1.30) 06/09/17 14:24 NT-Pro-B Natriuret Pep 584.2 pg/mL (0-900) 06/05/17 23:31 Total Protein 8.2 g/dL (6.3-8.2) 06/05/17 23:31 Albumin 3.7 g/dL (3.9-5) L 06/05/17 23:31 Albumin/Globulin Ratio 0.8 % 06/05/17 23:31 TSH 2.510 mlU/mL (0.270-4.200) 06/10/17 16:23 Vancomycin Trough 15.8 ug/mL (5.0-20.0) 06/08/17 14:38 HIV 1&2 Antibody Rapid Non react (Non React) 06/10/17 16:23 HIV P24 Antigen Non react (Non React) 06/10/17 16:23
[2017-06-13] MEDS: VANCOMYCIN 1,500 MG in NACL 0.9% 500 ML 500 ML IV SCH ×2 (02:28→17:55)
[2017-06-13] MEDS: LASIX IV SCH ×2 (06:31→19:44)
[2017-06-13] MEDS: ZOSYN/NS 4.5GM/100ML 4.5 GM/100 ML VIAL IV SCH ×3 (06:31→23:45)
[2017-06-13 06:45] LABS: Anion Gap 14 mmol/L; BUN/Creatinine Ratio 18; Blood Urea Nitrogen 21 mg/dL (9-20); Calcium 8.3 mg/dL (8.4-10.2); Carbon Dioxide 25 mmol/L (22-30); Chloride 105.1 mmol/L (98-107); Glucose 126 mg/dL (75-100); Potassium 3.3 mmol/L (3.6-5.0); Sodium 141 mmol/L (137-145)
--- NOTE | 2017-06-13 09:58 | Progress Note ---
Assessment and Plan Cellulitis of Left lower extremity Osteomyelitis of left great toe s/p debridement and irrigation left great toe Dilated Cardiomyopathy, new onset EF 15-20% on echo this admission Normal TSH and Negative HIV Ab Hypertension Continue guideline directed medical therapy for his dilated cardiomyopathy. Outpatient ischemic workup with Persantine thallium. Stable cardiac de leon. Subjective Date of service: 06/13/17 Principal diagnosis: osteomyelitis Interval history: No events overnight Objective Vital Signs Temp Pulse Resp BP Pulse Ox 06/13/17 08:30 98.5 F 18 148/67 06/12/17 16:24 98.0 F 65 20 120/59 99 - Physical Examination Narrative exam: Physical examination Vitals reviewed GEN: No acute distress noted HEENT: Carotids 2+ NECK: Supple CVS: S1 and S2 heard no significant murmur or gallop noted LUNGS/CHEST: Normal auscultation ABD: Soft nontender Extremities: Edema left greater than right NEURO: Alert moves all all 4 extremities PSY: Stable General: No Apparent Distress HEENT: Positive: PERRL Neck: Positive: trachea midline Neuro: Positive: Grossly Intact Extremities: Present: edema (left lower extremity) - Labs and Meds Comprehensive Metabolic Panel 06/13/17 Range/Units 05:51 Sodium 141 (137-145) mmol/L Potassium 3.3 L (3.6-5.0) mmol/L Chloride 105.1 (98-107) mmol/L Carbon Dioxide 25 (22-30) mmol/L BUN 21 H (9-20) mg/dL Creatinine 1.2 (0.8-1.5) mg/dL Glucose 126 H (75-100) mg/dL Calcium 8.3 L (8.4-10.2) mg/dL
[2017-06-13] MEDS: TYLENOL PO PRN (10:16)
[2017-06-13] MEDS: ZESTRIL PO SCH (10:16)
[2017-06-13] MEDS: COREG PO SCH ×2 (10:17→23:44)
[2017-06-13] MEDS: BABY ASPIRIN PO SCH (10:17)
[2017-06-13] MEDS: LOVENOX SUB-Q SCH ×2 (10:18→10:21)
[2017-06-13] MEDS: ALDACTONE PO SCH (10:19)
[2017-06-13] MEDS ORDERED: K-DUR PO ONE (13:52)
--- NOTE | 2017-06-13 13:52 | Progress Note ---
Assessment and Plan Assessment and plan: 57 year old -[place] male presented to the emergency department complaining of on and off swelling and ulceration of the left big toe. He is also complaining cough and shortness of breath Osteomyelitis of the left big Toe - Wound culture grew staph - Harris today started with IV vancomycin and Zosyn - Patient will be discharged with Zyvox and moxifloxacin Chronic systolic CHF - Echo showed ejection fraction 15-20% - Cardiology consult appreciated - Ischemic workup as an outpatient - For now continue medical management Uncontrolled hypertension - Patient is on lisinopril and carvedilol - We'll monitor DM type II - Hemoglobin A1C is 5.8 DVT prophylaxis -Enoxaparin Disposition -Will be discharged once the medication is approved. History Interval history: And evaluated this morning, patient didn't have any complaints Hospitalist Physical - Physical exam Narrative exam: Not in cardiopulmonary distress. The patient is obese. Vital signs as documented. Head exam is unremarkable. No scleral icterus . Neck is without jugular venous distension, thyromegaly, or carotid bruits. Lungs are clear to auscultation. Cardiac exam reveals regular rate and Rhythm. Abdominal exam reveals normal bowel sounds. Extremities swelling and ulceration of the left big toe. 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 No focal weakness. - Constitutional Vitals: Temp Pulse Resp BP Pulse Ox 98.5 F 65 18 148/67 99 06/13/17 08:30 06/12/17 16:24 06/13/17 08:30 06/13/17 08:30 06/12/17 16:24 General appearance: Present: no acute distress Results - Labs CBC & Chem 7: 06/12/17 05:01 06/13/17 05:51 Labs: Laboratory Last Values WBC 10.3 K/mm3 (4.5-11.0) 06/12/17 05:01 RBC 4.18 M/mm3 (3.65-5.03) 06/12/17 05:01 Hgb 12.4 gm/dl (11.8-15.2) 06/12/17 05:01 Hct 35.9 % (35.5-45.6) 06/12/17 05:01 MCV 86 fl (84-94) 06/12/17 05:01 MCH 30 pg (28-32) 06/12/17 05:01 MCHC 34 % (32-34) 06/12/17 05:01 RDW 13.3 % (13.2-15.2) 06/12/17 05:01 Plt Count 336 K/mm3 (140-440) 06/12/17 05:01 Lymph % (Auto) 15.1 % (13.4-35.0) 06/12/17 05:01 Marshall % (Auto) 12.1 % (0.0-7.3) H 06/12/17 05:01 Eos % (Auto) 6.6 % (0.0-4.3) H 06/12/17 05:01 Baso % (Auto) 1.1 % (0.0-1.8) 06/12/17 05:01 Lymph # 1.6 K/mm3 (1.2-5.4) 06/12/17 05:01 Marshall # 1.2 K/mm3 (0.0-0.8) H 06/12/17 05:01 Eos # 0.7 K/mm3 (0.0-0.4) H 06/12/17 05:01 Baso # 0.1 K/mm3 (0.0-0.1) 06/12/17 05:01 Seg Neutrophils % 65.1 % (40.0-70.0) 06/12/17 05:01 Seg Neutrophils # 6.7 K/mm3 (1.8-7.7) 06/12/17 05:01 Sodium 141 mmol/L (137-145) 06/13/17 05:51 Potassium 3.3 mmol/L (3.6-5.0) L 06/13/17 05:51 Chloride 105.1 mmol/L (98-107) 06/13/17 05:51 Carbon Dioxide 25 mmol/L (22-30) 06/13/17 05:51 Anion Gap 14 mmol/L 06/13/17 05:51 BUN 21 mg/dL (9-20) H 06/13/17 05:51 Creatinine 1.2 mg/dL (0.8-1.5) 06/13/17 05:51 Estimated GFR > 60 ml/min 06/13/17 05:51 BUN/Creatinine Ratio 18 % 06/13/17 05:51 Glucose 126 mg/dL (75-100) H 06/13/17 05:51 Hemoglobin A1c 5.8 % (4-6) 06/09/17 01:27 Lactic Acid 1.90 mmol/L (0.7-2.0) 06/05/17 23:31 Calcium 8.3 mg/dL (8.4-10.2) L 06/13/17 05:51 Total Bilirubin 0.30 mg/dL (0.1-1.2) 06/05/17 23:31 AST 13 units/L (5-40) 06/05/17 23:31 ALT 14 units/L (7-56) 06/05/17 23:31 Alkaline Phosphatase 83 units/L (35-129) 06/05/17 23:31 C-Reactive Protein 0.50 mg/dL (0.00-1.30) 06/09/17 14:24 NT-Pro-B Natriuret Pep 584.2 pg/mL (0-900) 06/05/17 23:31 Total Protein 8.2 g/dL (6.3-8.2) 06/05/17 23:31 Albumin 3.7 g/dL (3.9-5) L 06/05/17 23:31 Albumin/Globulin Ratio 0.8 % 06/05/17 23:31 TSH 2.510 mlU/mL (0.270-4.200) 06/10/17 16:23 Vancomycin Trough 15.8 ug/mL (5.0-20.0) 06/08/17 14:38 HIV 1&2 Antibody Rapid Non react (Non React) 06/10/17 16:23 HIV P24 Antigen Non react (Non React) 06/10/17 16:23
[2017-06-14] MEDS: VANCOMYCIN 1,500 MG in NACL 0.9% 500 ML 500 ML IV SCH (02:05)
[2017-06-14] MEDS: TYLENOL PO PRN (02:17)
[2017-06-14] MEDS: ZOSYN/NS 4.5GM/100ML 4.5 GM/100 ML VIAL IV SCH (06:05)
[2017-06-14] MEDS: LASIX IV SCH ×2 (06:05→17:01)
[2017-06-14 07:57] LABS: Anion Gap 16 mmol/L; BUN/Creatinine Ratio 19; Blood Urea Nitrogen 19 mg/dL (9-20); Calcium 8.7 mg/dL (8.4-10.2); Carbon Dioxide 25 mmol/L (22-30); Chloride 103.9 mmol/L (98-107); Glucose 94 mg/dL (75-100); Potassium 3.4 mmol/L (3.6-5.0); Sodium 141 mmol/L (137-145)
[2017-06-14] MEDS ORDERED: K-DUR PO ONE (08:14)
--- NOTE | 2017-06-14 10:03 | Progress Note ---
Assessment and Plan Cellulitis of Left lower extremity Osteomyelitis of left great toe s/p debridement and irrigation left great toe Dilated Cardiomyopathy, new onset. Stage B class II symptoms EF 15-20% on echo this admission Normal TSH and Negative HIV Ab Hypertension Continue guideline directed medical therapy for his dilated cardiomyopathy. Outpatient ischemic workup with Persantine thallium. Stable cardiac de leon. Subjective Date of service: 06/14/17 Principal diagnosis: osteomyelitis Interval history: No events overnight Objective Vital Signs Temp Pulse Resp BP Pulse Ox 06/14/17 08:21 97.9 F 65 18 136/82 99 06/14/17 03:17 18 06/14/17 02:17 18 06/13/17 22:56 98.8 F 79 16 138/80 98 06/13/17 21:16 98.8 F 76 16 128/68 99 06/13/17 17:05 97.7 F 69 18 132/83 97 - Physical Examination Narrative exam: Physical examination Vitals reviewed GEN: No acute distress noted HEENT: Carotids 2+ NECK: Supple CVS: S1 and S2 heard no significant murmur or gallop noted LUNGS/CHEST: Normal auscultation ABD: Soft nontender Extremities: Edema left greater than right NEURO: Alert moves all all 4 extremities PSY: Stable General: No Apparent Distress HEENT: Positive: PERRL Neck: Positive: trachea midline Neuro: Positive: Grossly Intact Extremities: Present: edema (left lower extremity) - Labs and Meds Comprehensive Metabolic Panel 06/14/17 Range/Units 06:49 Sodium 141 (137-145) mmol/L Potassium 3.4 L (3.6-5.0) mmol/L Chloride 103.9 (98-107) mmol/L Carbon Dioxide 25 (22-30) mmol/L BUN 19 (9-20) mg/dL Creatinine 1.0 (0.8-1.5) mg/dL Glucose 94 (75-100) mg/dL Calcium 8.7 (8.4-10.2) mg/dL
[2017-06-14] MEDS: ALDACTONE PO SCH (10:32)
[2017-06-14] MEDS: BABY ASPIRIN PO SCH (10:32)
[2017-06-14] MEDS: ZESTRIL PO SCH (10:35)
[2017-06-14] MEDS: COREG PO SCH ×2 (10:35→22:25)
[2017-06-14] MEDS: LOVENOX SUB-Q SCH (10:38)
--- NOTE | 2017-06-14 12:31 | Progress Note ---
Assessment and Plan Assessment and plan: 57 year old -[place] male presented to the emergency department complaining of on and off swelling and ulceration of the left big toe. He is also complaining cough and shortness of breath Osteomyelitis of the left big Toe - Wound culture grew staph - Harris today started with IV vancomycin and Zosyn - Patient will be discharged with Zyvox and moxifloxacin Chronic systolic CHF - Echo showed ejection fraction 15-20% - Cardiology consult appreciated - Ischemic workup as an outpatient - For now continue medical management Uncontrolled hypertension - Patient is on lisinopril and carvedilol - We'll monitor DM type II - Hemoglobin A1C is 5.8 DVT prophylaxis -Enoxaparin Disposition -Will be discharged once the medication is approved. History Interval history: And evaluated this morning, patient didn't have any complaints Hospitalist Physical - Physical exam Narrative exam: Not in cardiopulmonary distress. The patient is obese. Vital signs as documented. Head exam is unremarkable. No scleral icterus . Neck is without jugular venous distension, thyromegaly, or carotid bruits. Lungs are clear to auscultation. Cardiac exam reveals regular rate and Rhythm. Abdominal exam reveals normal bowel sounds. Extremities swelling and ulceration of the left big toe. 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 No focal weakness. - Constitutional Vitals: Temp Pulse Resp BP Pulse Ox 97.9 F 76 18 144/71 99 06/14/17 08:21 06/14/17 10:32 06/14/17 08:21 06/14/17 10:35 06/14/17 08:21 General appearance: Present: no acute distress Results - Labs CBC & Chem 7: 06/12/17 05:01 06/14/17 06:49 Labs: Laboratory Last Values WBC 10.3 K/mm3 (4.5-11.0) 06/12/17 05:01 RBC 4.18 M/mm3 (3.65-5.03) 06/12/17 05:01 Hgb 12.4 gm/dl (11.8-15.2) 06/12/17 05:01 Hct 35.9 % (35.5-45.6) 06/12/17 05:01 MCV 86 fl (84-94) 06/12/17 05:01 MCH 30 pg (28-32) 06/12/17 05:01 MCHC 34 % (32-34) 06/12/17 05:01 RDW 13.3 % (13.2-15.2) 06/12/17 05:01 Plt Count 336 K/mm3 (140-440) 06/12/17 05:01 Lymph % (Auto) 15.1 % (13.4-35.0) 06/12/17 05:01 Long % (Auto) 12.1 % (0.0-7.3) H 06/12/17 05:01 Eos % (Auto) 6.6 % (0.0-4.3) H 06/12/17 05:01 Baso % (Auto) 1.1 % (0.0-1.8) 06/12/17 05:01 Lymph # 1.6 K/mm3 (1.2-5.4) 06/12/17 05:01 Long # 1.2 K/mm3 (0.0-0.8) H 06/12/17 05:01 Eos # 0.7 K/mm3 (0.0-0.4) H 06/12/17 05:01 Baso # 0.1 K/mm3 (0.0-0.1) 06/12/17 05:01 Seg Neutrophils % 65.1 % (40.0-70.0) 06/12/17 05:01 Seg Neutrophils # 6.7 K/mm3 (1.8-7.7) 06/12/17 05:01 Sodium 141 mmol/L (137-145) 06/14/17 06:49 Potassium 3.4 mmol/L (3.6-5.0) L 06/14/17 06:49 Chloride 103.9 mmol/L (98-107) 06/14/17 06:49 Carbon Dioxide 25 mmol/L (22-30) 06/14/17 06:49 Anion Gap 16 mmol/L 06/14/17 06:49 BUN 19 mg/dL (9-20) 06/14/17 06:49 Creatinine 1.0 mg/dL (0.8-1.5) 06/14/17 06:49 Estimated GFR > 60 ml/min 06/14/17 06:49 BUN/Creatinine Ratio 19 % 06/14/17 06:49 Glucose 94 mg/dL (75-100) 06/14/17 06:49 Hemoglobin A1c 5.8 % (4-6) 06/09/17 01:27 Lactic Acid 1.90 mmol/L (0.7-2.0) 06/05/17 23:31 Calcium 8.7 mg/dL (8.4-10.2) 06/14/17 06:49 Total Bilirubin 0.30 mg/dL (0.1-1.2) 06/05/17 23:31 AST 13 units/L (5-40) 06/05/17 23:31 ALT 14 units/L (7-56) 06/05/17 23:31 Alkaline Phosphatase 83 units/L (35-129) 06/05/17 23:31 C-Reactive Protein 0.50 mg/dL (0.00-1.30) 06/09/17 14:24 NT-Pro-B Natriuret Pep 584.2 pg/mL (0-900) 06/05/17 23:31 Total Protein 8.2 g/dL (6.3-8.2) 06/05/17 23:31 Albumin 3.7 g/dL (3.9-5) L 06/05/17 23:31 Albumin/Globulin Ratio 0.8 % 06/05/17 23:31 TSH 2.510 mlU/mL (0.270-4.200) 06/10/17 16:23 Vancomycin Trough 15.8 ug/mL (5.0-20.0) 06/08/17 14:38 HIV 1&2 Antibody Rapid Non react (Non React) 06/10/17 16:23 HIV P24 Antigen Non react (Non React) 06/10/17 16:23
--- NOTE | 2017-06-14 14:07 | Progress Note ---
Assessment and Plan Assessment: 1) Left great toe ulcer / chronic osteomyelitis: CRP=0.3 S/P bone biopsy + MSSA 2) ? Peripheral Neuropathy of unclear etiology Plan: -stop vanco -start cefazolin 2 g IV q 8h -pt is unfunded therefore IV antibiotics would not be an option. -upon discharge will do keflex 1000 mg PO q6 hours for 6 weeks from 06/12 until 07/23/17. Kleflex is free at [facility]. -pt educated if not improvement by week 4 he needs to be reevaluated by ID -orders sent to transplant case manager I am signing off Thank you Dr Elliott for your consultation, will follow up with you. Cathi Garcia MD Infectious Diseases Specialist [facility] ([facility]) M [phone] O [phone] Subjective Date of service: 06/14/17 Principal diagnosis: osteomyelitis Interval history: Feels ok no complaints Microbiology: Blood cultures: 06/08 ngtd 06/11 tissue toe pending Current Antimicrobials: none Previous antibiotics: Zosyn 06/07 Vancomycin 06/06 Objective - Exam Narrative Exam: General appearance: Alert in NAD, conversant Eyes: anicteric sclerae, moist conjunctivae; no lid-lag; PERRLA HENT: Atraumatic; oropharynx clear with moist mucous membranes and no mucosal ulcerations/no oral thrush; normal hard and soft palate. Normal external ears. Neck: Trachea midline; supple, no thyromegaly or lymphadenopathy Lungs: CTA, with normal respiratory effort and no intercostal retractions CV: RRR, no murmurs Abdomen: Soft, non-tender; no masses or hepatosplenomegaly Extremities: marked left great toe swelling, deformity and ulcer on the tip, no drainage. Elvin toes swelling / desquamation. Skin: Normal temperature, turgor and texture; no rash, ulcers or subcutaneous nodules Psych: Appropriate affect, alert and oriented to person, place and time. Neuro: alert and oriented x 3. Moving all extermities Lines: No CVL / PICC - Constitutional Vitals: Vital Signs Temp Pulse Resp BP Pulse Ox 97.9 F 76 18 144/71 99 06/14/17 08:21 06/14/17 10:32 06/14/17 08:21 06/14/17 10:35 06/14/17 08:21 Temperature -Last 24 Hours Temperature 97.9 F Temperature 98.8 F Temperature 98.8 F Temperature 97.7 F - Labs CBC & Chem 7: 06/12/17 05:01 06/14/17 06:49 Labs: Abnormal lab results 06/14/17 Range/Units 06:49 Potassium 3.4 L (3.6-5.0) mmol/L
[2017-06-14] MEDS: ceFAZolin 2 GM in NACL 0.9% 100 ML IV SCH ×2 (15:43→22:26)
[2017-06-15] MEDS: LASIX IV SCH (06:25)
[2017-06-15] MEDS: ceFAZolin 2 GM in NACL 0.9% 100 ML IV SCH ×2 (06:25→13:11)
[2017-06-15 07:55] VITALS: BP 151/82
[2017-06-15] MEDS: TYLENOL PO PRN (08:25)
[2017-06-15] MEDS: ALDACTONE PO SCH (09:40)
[2017-06-15] MEDS: COREG PO SCH (09:40)
[2017-06-15] MEDS: ZESTRIL PO SCH (09:41)
[2017-06-15] MEDS: LOVENOX SUB-Q SCH ×2 (09:41→09:43)
[2017-06-15] MEDS: BABY ASPIRIN PO SCH (09:41)
--- NOTE | 2017-06-15 10:47 | Discharge Summary ---
Providers - Providers Date of Admission: 06/06/17 01:50 Date of discharge: 06/15/17 Attending physician: MARILEE GALLO MD 06/06/17 16:07 Consult to Physician [CONS] Routine Consulting Provider: NELLY KING Reason For Exam: osteomylitis left foot Place consult to:: school community relations coordinator orthopedics Notified:: OFFICE Phone number called:: [phone] Was contact made?: Yes If yes, spoke with:: ADAN Time called:: 09:10 06/09/17 08:24 Consult to Wound/ET Nurse [CONS] Urgent Reason For Exam: wound eval to the right great toe. 06/09/17 08:25 Consult to Physician [CONS] Routine Consulting Provider: CATHI CHILDERS Reason For Exam: osteomyelitis Place consult to:: ID Notified:: Dr. Narayan 06/10/17 07:09 Consult to Physician [CONS] Routine Consulting Provider: ANA LILIA ZHOU Reason For Exam: systolic CHF Place consult to:: dr. zhou Notified:: called answer Phone number called:: Was contact made?: No If yes, spoke with:: aroldo Time called:: 09:06 06/12/17 11:59 Consult to Case Management [CONS] Stat Services Needed at Discharge: Other Notified:: school community relations coordinator Additional Physician Instructions: patient assistent program for zyvox ( linezolid) 600 mg PO q12h to cover Staph -needs CBC every 2 weeks to monitor zyvox side effects - leukopenia and thrombocytopenia thanks Cathi Narayan 06/14/17 14:07 Consult to Case Management [CONS] Stat Services Needed at Discharge: Other Notified:: school community relations coordinator Additional Physician Instructions: patients needs keflex 1000 mg PO q6 hours for 6 weeks from 06/12 until 07/23/17. Kleflex is free at [facility]. 06/15/17 02:30 Consult to Wound/ET Nurse [CONS] Routine Reason For Exam: follow up post op Primary care physician: STERILE PRODUCTS PROCESSOR Hospitalization Reason for admission: Osteomyelitis of the left big toe, Acute systolic CHF Condition: Stable Pertinent studies: Xray of the left feet; osteomyelitis of the distal phalanx with surrounding soft tissue swelling Echo EF 15-20% Bone culture positive for staph Procedures: Bone biopsy Hospital course: History of present illness: 57-year-old man with a history of hypertension, chronic venous insufficiency of the left foot comes emergency room because of the last 2 days he has increased swelling of the left leg. Patient states he was taking off some skin off the left great toe when he noticed the changes 2 days later. He has taken antibiotics for the left toe total of 3 times, clindamycin was the most recent, a few weeks ago. Is at the chronic ulcer of the toe for 2-1/2 years and has not completely healed. He denies fever or chills. patient was admitted to the floor for osteomyelitis/cellulitis, placed on IV antibiotics and when i examined him patient complains, bilateral leg swelling, cough, dyspnea and orthopnea. ECho was done and significant for systolic CHF with EF of 15-20%. Cardology was consulted and was treated with appropriate medications and will have follow up appointment with in 2weeks in the office . patient was also advised to have follow up with PCP in 1 week. ID was consulted for osteomyelitis and ordered bone biopsy and was positive for staph. Patient is unfunded so ID recommend Keflex for 6 weeks with O/P ID follow up appointment. patient was hemodynamically stable at the time of discharge and appropriate medications were given. Disposition: [id number] HOME UNDER HOME [facility] - Discharge Diagnoses (1) Acute systolic CHF (congestive heart failure), NYHA class 4 Status: Acute (2) Osteomyelitis of toe of left foot Status: Acute Core Measure Documentation - Palliative Care Palliative Care/ Comfort Measures: Not Applicable - Core Measures Any of the following diagnoses?: heart failure - Heart Failure Discharge Requirements PATRICE/ARB for LVSD if EF <40%: Yes Beta steven at discharge: Yes Exam - Physical Exam Narrative exam: Not in cardiopulmonary distress. The patient is obese. Vital signs as documented. Head exam is unremarkable. No scleral icterus . Neck is without jugular venous distension, thyromegaly, or carotid bruits. Lungs are clear to auscultation. Cardiac exam reveals regular rate and Rhythm. Abdominal exam reveals normal bowel sounds. Extremities swelling and ulceration of the left big toe. 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 No focal weakness. - Constitutional Vitals: Temp Pulse Resp BP Pulse Ox 98.6 F 85 20 151/82 96 06/15/17 07:53 06/15/17 07:53 06/15/17 07:53 06/15/17 07:53 06/15/17 07:53 Plan Activity: no restrictions Weight Bearing Status: Full Weight Bearing Diet: low cholesterol, low salt Follow up with: KRYS BRUMFIELD MD [Staff Physician] - 07/06/17 PRIMARY CAREMD [Primary Care Provider] - 7 Days ROC MIXON MD [Staff Physician] - 14 Days Prescriptions: Aspirin [Aspirin BABY CHEW TAB] 81 mg PO QDAY #30 tab.chew Carvedilol [Coreg] 6.25 mg PO BID #30 tablet Cephalexin [Keflex] 1,000 mg PO Q6HR #304 capsule Furosemide 40 mg PO DAILY #30 Lisinopril 20 mg PO DAILY #30 Norvasc 5 mg PO DAILY #30 oxyCODONE /ACETAMINOPHEN [Percocet 5/325 mg] 1 tab PO Q6H PRN #10 tablet PRN Reason: Pain, Moderate (4-6) Potassium Citrate ER 20 mg PO DAILY #30 Spironolactone [Aldactone] 12.5 mg PO QDAY #30 tablet
[2017-06-15 11:01] LABS: Anion Gap 16 mmol/L; BUN/Creatinine Ratio 15; Blood Urea Nitrogen 17 mg/dL (9-20); Calcium 8.9 mg/dL (8.4-10.2); Carbon Dioxide 27 mmol/L (22-30); Chloride 102.6 mmol/L (98-107); Glucose 126 mg/dL (75-100); Sodium 141 mmol/L (137-145)
[2017-06-15 11:14] LABS: Potassium 4.2 mmol/L (3.6-5.0)
--- NOTE | 2017-06-15 11:48 | Progress Note ---
Assessment and Plan Cellulitis of Left lower extremity Osteomyelitis of left great toe s/p debridement and irrigation left great toe Dilated Cardiomyopathy, new onset EF 15-20% on echo this admission Normal TSH and Negative HIV Ab Hypertension Continue medical therapy for his dilated cardiomyopathy. Outpatient ischemic workup with Persantine thallium. Stable cardiac de leon. Subjective Date of service: 06/15/17 Principal diagnosis: osteomyelitis Interval history: Patient looks and feels better. He denies shortness of breath. For planned discharge home today. Objective Vital Signs Temp Pulse Resp Resp BP Pulse Ox 06/15/17 07:53 98.6 F 85 20 151/82 96 06/14/17 22:00 18 06/14/17 20:56 99.0 F 73 14 132/69 100 06/14/17 16:49 99.0 F 73 18 137/78 100 - Physical Examination General: No Apparent Distress HEENT: Positive: PERRL Neck: Positive: trachea midline Cardiac: Positive: Reg Rate and Rhythm Lungs: Positive: Decreased Breath Sounds Neuro: Positive: Grossly Intact - Labs and Meds Comprehensive Metabolic Panel 06/15/17 Range/Units 10:20 Sodium 141 (137-145) mmol/L Potassium 4.2 D (3.6-5.0) mmol/L Chloride 102.6 (98-107) mmol/L Carbon Dioxide 27 (22-30) mmol/L BUN 17 (9-20) mg/dL Creatinine 1.1 (0.8-1.5) mg/dL Glucose 126 H (75-100) mg/dL Calcium 8.9 (8.4-10.2) mg/dL
== END 2017-06-15 14:58 | disposition home health service (06) | DRG 515 ==
LOC: ED 19:00 → 3A 06-06 01:50
PROVIDERS: ADMIT Internal Medicine; ATTEND Internal Medicine
PROC: 0QBR0ZZ Excision of Left Toe Phalanx, Open Approach (ICD-10-PCS; principal; 2017-06-11)
DX: M86.8X7 Other osteomyelitis, ankle and foot (principal); I50.23 Acute on chronic systolic (congestive) heart failure; L03.116 Cellulitis of left lower limb; I42.0 Dilated cardiomyopathy; I11.0 Hypertensive heart disease with heart failure; I87.2 Venous insufficiency (chronic) (peripheral)
CPT/HCPCS: 36415; 71010; 80048; 80053; 80202; 82140; 83036; 83880; 84443; 85025; 85027; 86140; 86403; 87040; 87116; 87186; 87806; 88307; 93005; 93010; 93306; 96365; J0690; J1170; J1650; J1940; J2250; J2405; J2543; J2704; J3370; J7030; J7040; Q9967

== ENCOUNTER 2017-08-01 09:24 | Inpatient (IN) | payer OTHER ==
[2017-08-01 10:45] LABS: Basophils % (Auto) 1.2 % (0.0-1.8); Eosinophils % (Auto) 2.6 % (0.0-4.3); Hematocrit 39.7 % (35.5-45.6); Hemoglobin 13.3 gm/dl (11.8-15.2); Mean Corpuscular HGB Conc 33 % (32-34); Mean Corpuscular Hemoglobin 29 pg (28-32); Mean Corpuscular Volume 86 fl (84-94); Platelet Count 408 K/mm3 (140-440); Red Blood Count 4.62 M/mm3 (3.65-5.03); Red Cell Distribution Width 13.9 % (13.2-15.2); White Blood Count 10.4 K/mm3 (4.5-11.0)
[2017-08-01 11:08] LABS: Alanine Aminotransferase 14 units/L (7-56); Albumin 3.5 g/dL (3.9-5); Albumin/Globulin Ratio 0.8 %; Alkaline Phosphatase 88 units/L (35-129); Anion Gap 18 mmol/L; BUN/Creatinine Ratio 15; Blood Urea Nitrogen 15 mg/dL (9-20); Calcium 8.9 mg/dL (8.4-10.2); Carbon Dioxide 26 mmol/L (22-30); Glucose 105 mg/dL (75-100); Potassium 4.4 mmol/L (3.6-5.0); Sodium 142 mmol/L (137-145); Total Protein 7.9 g/dL (6.3-8.2)
[2017-08-01] MEDS ORDERED: CLEOCIN 600 MG/50 mL 600 MG/50 ML BAG IV ONE (12:33)
[2017-08-01] MEDS ORDERED: ZOFRAN IV ONE (12:34)
[2017-08-01] MEDS ORDERED: LASIX IV ONE (12:34)
[2017-08-01] MEDS ORDERED: MORPHINE IV ONE (12:34)
[2017-08-01] MEDS ORDERED: BABY ASPIRIN PO ONE (12:36)
--- NOTE | 2017-08-01 12:37 | Emergency Department Report ---
HPI - General Chief Complaint: Wound/Laceration Time Seen by Provider: 08/01/17 11:51 - HPI HPI: The patient is a 57yo male whom presents for evaluation of left leg pain and swelling. The patient reports 2 weeks of progressive swelling and pain to the distal left leg, 10/10 in severity, throbbing in quality, worsened with ambulation or weightbearing. He shares that he was admitted and treated at this hospital for osteomyelitis and cellulitis 3 weeks ago, but that his symptoms significantly improved and nearly resolved prior to onset of current symptoms. He denies trauma or penetrating injury to the left lower leg, motor deficit, color changes, chills, night sweats. ED Past Medical Hx - Past Medical History Hx Hypertension: Yes Hx Congestive Heart Failure: Yes Hx HIV: No Additional medical history: OSTEEOMYELITIS- LEFT FOOT - Surgical History Additional Surgical History: BONE BIOPSY LEFT BIG TOE - Social History Smoking Status: Never Smoker Substance Use Type: None - Medications Home Medications: Home Medications Medication Instructions Recorded Confirmed Last Taken Type Aspirin [Aspirin BABY CHEW TAB] 81 mg PO QDAY #30 tab.chew 06/15/17 08/01/17 Unknown Rx Carvedilol [Coreg] 6.25 mg PO BID #30 tablet 06/15/17 08/01/17 Unknown Rx Cephalexin [Keflex] 1,000 mg PO Q6HR #304 capsule 06/15/17 08/01/17 Unknown Rx Furosemide 40 mg PO DAILY #30 06/15/17 08/01/17 Unknown Rx Lisinopril 20 mg PO DAILY #30 06/15/17 08/01/17 Unknown Rx Norvasc 5 mg PO DAILY #30 06/15/17 08/01/17 Unknown Rx Potassium Citrate ER 20 mg PO DAILY #30 06/15/17 08/01/17 Unknown Rx Spironolactone [Aldactone] 12.5 mg PO QDAY #30 tablet 06/15/17 08/01/17 Unknown Rx oxyCODONE /ACETAMINOPHEN [Percocet 1 tab PO Q6H PRN #10 tablet 06/15/17 Unknown Rx 5/325 mg] ED Review of Systems ROS: Stated complaint: FOOT INFECTED Other details as noted in HPI Constitutional: denies: fever ENT: denies: throat or neck pain Respiratory: denies: cough, shortness of breath Cardiovascular: denies: chest pain Endocrine: denies unexplained weight loss or gain Gastrointestinal: denies: abdominal pain, nausea Genitourinary: denies: dysuria Musculoskeletal: reports leg pain and leg swelling Skin: denies: rash Neurological: denies: headache Hematological/Lymphatic: denies: easy bleeding or easy bruising Psych: denies sadness or hopelessness Physical Exam - Physical Exam Vital Signs: Vital Signs 08/01/17 08/01/17 09:30 12:07 Temperature 97.8 F Pulse Rate 85 74 Respiratory 18 16 Rate Blood Pressure 146/76 Blood Pressure 147/81 [Left] O2 Sat by Pulse 98 96 Oximetry Physical Exam: General: well-nourished, well-developed, no acute distress Head: Normocephalic, atraumatic Eyes: normal sclera ENT: Mucous membranes are pink and moist Neck: trachea midline, neck supple, No neck stiffness, no cervical adenopathy Respiratory: Breath sounds equal bilaterally, no wheezing, rales, or rhonchi Cardio: S1 and S2 present, no murmurs, rubs, gallops, capillary refill is brisk Abdomen: Normoactive bowel sounds, soft abdomen, no rigidity, no guarding or rebound tenderness Musc: Left distal lower leg and foot severely swollen circumferentially, twice the size of the right leg and foot, 2+ pitting edema, tenderness to palpation present throughout, distal pulses intact, sensation and motor deficit Skin: No rash Neuro: no facial drooping, normal speech Psych: Normal affect ED Course Vital Signs 08/01/17 08/01/17 09:30 12:07 Temperature 97.8 F Pulse Rate 85 74 Respiratory 18 16 Rate Blood Pressure 146/76 Blood Pressure 147/81 [Left] O2 Sat by Pulse 98 96 Oximetry ED Medical Decision Making - Lab Data Result diagrams: 08/01/17 10:21 08/01/17 10:21 - Medical Decision Making The patient was seen and examined by myself. The patient is placed on a retoucher and continuous pulse ox. On initial evaluation, the patient was found to be in no distress. Evaluation orders were placed. Evaluation findings are consistent with failed outpatient treatment of cellulitis. Lab was also greatly unrevealing. The patient is given gentamicin and vancomycin for treatment of cellulitis. The patient given morphine for treatment of his pain. The on-call hospitalist service was contacted. They agreed to admit the patient for further treatment and close monitoring. The ED admit order was placed. The patient was admitted in guarded condition. Critical care attestation.: If time is entered above; I have spent that time in minutes in the direct care of this critically ill patient, excluding procedure time. ED Disposition Clinical Impression: Cellulitis of left leg, Left leg swelling, Osteomyelitis of toe of left foot Disposition: OP ADMIT IP TO THIS HOSP Is pt being admited?: Yes Does the pt Need Aspirin: Yes Condition: Stable Referrals: PRIMARY CARE, [Primary Care Provider] - 3-5 Days Time of Disposition: 12:36
[2017-08-01] MEDS ORDERED: VANCOMYCIN/NS 1 GM/250 ML 1 GM/250 ML BAG IV ONE (13:00)
[2017-08-01 13:20] LABS: C-Reactive Protein 1.2 mg/dL (0.00-1.30)
--- NOTE | 2017-08-01 21:35 | History and Physical Report ---
History of Present Illness Date of examination: 08/01/17 Date of admission: 08/01/17 14:35 Chief complaint: LLE swelling and pain History of present illness: See H/p which was dictated in reports Medications and Allergies Allergies Allergy/AdvReac Type Severity Reaction Status Date / Time cefoxitin Allergy Itching Verified 08/01/17 09:41 lisinopril AdvReac Unknown Verified 08/01/17 09:29 antibotic Allergy Unknown Uncoded 08/01/17 09:30 Home Medications Medication Instructions Recorded Confirmed Last Taken Type Aspirin [Aspirin BABY CHEW TAB] 81 mg PO QDAY #30 tab.chew 06/15/17 08/01/17 Unknown Rx Carvedilol [Coreg] 6.25 mg PO BID #30 tablet 06/15/17 08/01/17 Unknown Rx Cephalexin [Keflex] 1,000 mg PO Q6HR #304 capsule 06/15/17 08/01/17 Unknown Rx Furosemide 40 mg PO DAILY #30 06/15/17 08/01/17 Unknown Rx Lisinopril 20 mg PO DAILY #30 06/15/17 08/01/17 Unknown Rx Norvasc 5 mg PO DAILY #30 06/15/17 08/01/17 Unknown Rx Potassium Citrate ER 20 mg PO DAILY #30 06/15/17 08/01/17 Unknown Rx Spironolactone [Aldactone] 12.5 mg PO QDAY #30 tablet 06/15/17 08/01/17 Unknown Rx oxyCODONE /ACETAMINOPHEN [Percocet 1 tab PO Q6H PRN #10 tablet 06/15/17 Unknown Rx 5/325 mg] Active Meds: Active Medications Influenza Virus Vaccine Quadrival (Fluarix Quad [id number](36 Mos+) 0.5 ml IM .ONCE ONE Stop: 08/02/17 12:01 Exam - Constitutional Vitals: Temp Pulse Resp BP Pulse Ox 99.6 F 83 20 133/59 98 08/01/17 21:18 08/01/17 21:18 08/01/17 21:18 08/01/17 21:18 08/01/17 21:18 Results - Labs CBC & Chem 7: 08/01/17 10:21 08/01/17 10:21 Labs: Laboratory Last Values WBC 10.4 K/mm3 (4.5-11.0) 08/01/17 10:21 RBC 4.62 M/mm3 (3.65-5.03) 08/01/17 10:21 Hgb 13.3 gm/dl (11.8-15.2) 08/01/17 10:21 Hct 39.7 % (35.5-45.6) 08/01/17 10:21 MCV 86 fl (84-94) 08/01/17 10:21 MCH 29 pg (28-32) 08/01/17 10:21 MCHC 33 % (32-34) 08/01/17 10:21 RDW 13.9 % (13.2-15.2) 08/01/17 10:21 Plt Count 408 K/mm3 (140-440) 08/01/17 10:21 Lymph % (Auto) 18.8 % (13.4-35.0) 08/01/17 10:21 [place] % (Auto) 10.9 % (0.0-7.3) H 08/01/17 10:21 Eos % (Auto) 2.6 % (0.0-4.3) 08/01/17 10:21 Baso % (Auto) 1.2 % (0.0-1.8) 08/01/17 10:21 Lymph # 2.0 K/mm3 (1.2-5.4) 08/01/17 10:21 [place] # 1.1 K/mm3 (0.0-0.8) H 08/01/17 10:21 Eos # 0.3 K/mm3 (0.0-0.4) 08/01/17 10:21 Baso # 0.1 K/mm3 (0.0-0.1) 08/01/17 10:21 Seg Neutrophils % 66.5 % (40.0-70.0) 08/01/17 10:21 Seg Neutrophils # 6.9 K/mm3 (1.8-7.7) 08/01/17 10:21 Sodium 142 mmol/L (137-145) 08/01/17 10:21 Potassium 4.4 mmol/L (3.6-5.0) 08/01/17 10:21 Chloride 102.0 mmol/L (98-107) 08/01/17 10:21 Carbon Dioxide 26 mmol/L (22-30) 08/01/17 10:21 Anion Gap 18 mmol/L 08/01/17 10:21 BUN 15 mg/dL (9-20) 08/01/17 10:21 Creatinine 1.0 mg/dL (0.8-1.5) 08/01/17 10:21 Estimated GFR > 60 ml/min 08/01/17 10:21 BUN/Creatinine Ratio 15 % 08/01/17 10:21 Glucose 105 mg/dL (75-100) H 08/01/17 10:21 Lactic Acid 1.20 mmol/L (0.7-2.0) 08/01/17 12:41 Calcium 8.9 mg/dL (8.4-10.2) 08/01/17 10:21 Total Bilirubin 0.40 mg/dL (0.1-1.2) 08/01/17 10:21 AST 14 units/L (5-40) 08/01/17 10:21 ALT 14 units/L (7-56) 08/01/17 10:21 Alkaline Phosphatase 88 units/L (35-129) 08/01/17 10:21 C-Reactive Protein 1.20 mg/dL (0.00-1.30) 08/01/17 12:41 NT-Pro-B Natriuret Pep 1302 pg/mL (0-900) H 08/01/17 12:41 Total Protein 7.9 g/dL (6.3-8.2) 08/01/17 10:21 Albumin 3.5 g/dL (3.9-5) L 08/01/17 10:21 Albumin/Globulin Ratio 0.8 % 08/01/17 10:21
[2017-08-01] MEDS ORDERED: NON-FORMULARY (Lisinopril 20 MG) PO SCH (21:45)
[2017-08-01] MEDS ORDERED: VANCOMYCIN PHARMACY TO DOSE IV SCH (22:00)
[2017-08-01] MEDS: TYLENOL PO PRN (23:23)
[2017-08-01] MEDS: BABY ASPIRIN PO SCH (23:25)
[2017-08-01] MEDS: ALDACTONE PO SCH (23:25)
[2017-08-01] MEDS: COREG PO SCH (23:25)
[2017-08-01] MEDS: LASIX PO SCH (23:32)
[2017-08-01] MEDS: LEVAQUIN 750MG/150ML 750 MG/150 ML BAG IV SCH (23:33)
[2017-08-01] MEDS: K-DUR PO SCH (23:33)
[2017-08-02] MEDS ORDERED: UNASYN/NS 3 GM/100 ML 3 GM/100 ML BAG IV SCH
[2017-08-02] MEDS: VANCOMYCIN 2,000 MG in NACL 0.9% 500 ML 500 ML IV SCH ×2 (01:25→09:12)
[2017-08-02] MEDS ORDERED: AMBIEN PO PRN (01:35)
[2017-08-02] MEDS: AMBIEN PO SCH ×2 (02:00→23:21)
[2017-08-02] MEDS: TYLENOL PO PRN ×2 (04:17→23:21)
[2017-08-02] MEDS: ALDACTONE PO SCH (09:12)
[2017-08-02] MEDS: LEVAQUIN 750MG/150ML 750 MG/150 ML BAG IV SCH (09:12)
[2017-08-02] MEDS: NORVASC PO SCH (09:13)
[2017-08-02] MEDS: LASIX PO SCH (09:13)
[2017-08-02] MEDS: COREG PO SCH ×2 (09:13→23:23)
[2017-08-02] MEDS: K-DUR PO SCH (09:13)
[2017-08-02] MEDS: BABY ASPIRIN PO SCH (09:27)
--- NOTE | 2017-08-02 09:27 | History and Physical Report ---
CHIEF COMPLAINT: Left lower extremity swelling, redness, and pain for last 2 weeks. HISTORY OF PRESENT ILLNESS: A 57-year-old -[place] male with chronic leg infection, left lower extremity for the last 4 years and recently treated in [facility] and discharged. The patient comes back for increasing swelling of the left lower extremity from mid calf region to the toes especially more on the dorsum of the left foot and left great toe. Left great toe is severely swollen and painful. The patient is using cephalexin. Could not use IV antibiotics because of insurance reasons. No fever. Pain is 10/10. PAST MEDICAL HISTORY: Significant for hypertension, congestive heart failure, osteomyelitis of the left foot. PAST SURGICAL HISTORY: Bone biopsy of the left big toe. SOCIAL HISTORY: Does not smoke. No alcohol, no recreational drugs. HOME MEDICATIONS: Cephalexin 500 mg po q.6., Coreg 6.25 b.i.d., lisinopril 20 mg once a day, Norvasc 5 mg once a day, Aldactone 12.5 daily, potassium 20 mEq p.o. daily, aspirin 81 mg p.o. daily. REVIEW OF SYSTEMS: Left lower extremity pain and swelling. Other than the left lower extremity swelling and pain in the deformed left dorsum of the foot, review of systems is essentially negative. A 14-point review of systems is done. PHYSICAL EXAMINATION: GENERAL: Middle-aged male lying in bed, using computer. VITAL SIGNS: Blood pressure is 146/76, temperature 97.8, pulse is 85, respirations 18. HEENT: Unremarkable. Pupils equal and reactive. NECK: Supple, no lymphadenopathy, no thyromegaly. LUNGS: Clear to auscultation and percussion. Good air entry. CARDIOVASCULAR: S1, S2 heard. No gallop, no murmur, no rub. Apical impulse in left fifth intercostal space and midclavicular line. ABDOMEN: Soft and benign. No hepatosplenomegaly, no guarding, no rigidity. Hernial orifices are normal. CENTRAL NERVOUS SYSTEM: Alert and oriented x 4, nonfocal exam. EXTREMITIES: Good pedal pulses. No pedal edema. Left foot severely swollen, hyperpigmentation from mid calf to dorsum of the foot. The left foot severely swollen on the dorsum of the foot and the left toe is severely enlarged and granulation tissue present on the left great toe. Very deformed. No drainage. No open ulcer. SKIN: Otherwise normal. LABORATORY DATA: Significant for white count of 10,400, hemoglobin of 13.3, hematocrit of 39.6, platelet count of 408,000. Electrolytes are normal. BNP is 1302. His albumin is 3.5, slightly low. Duplex scan of the left lower extremity normal. ASSESSMENT AND PLAN: 1. Severe cellulitis of the left lower extremity with possible osteomyelitis of the left foot. The patient to get MRI, ID consult, and also Vascular Surgery consult. The patient initiated on Unasyn and vancomycin. continue the antibiotics. 2. Hypertension. Continue Coreg, lisinopril, and Norvasc. 3. Congestive heart failure. Continue spironolactone. 4. Chronic pain. Continue Percocet. 5. Deep venous thrombosis prophylaxis, Lovenox 40 mg subcutaneous daily. JOB# [id number] QASIM/DAVID AMARO
--- NOTE | 2017-08-02 10:59 | Consultation ---
History of Present Illness - Reason for Consult Consult date: 08/02/17 - History of Present Illness Patient with a history of peripheral vascular disease and venous insufficiency. His venous duplexes for DVT have been negative. He has left lower extremity asymmetric swelling of the lower leg and foot with skin changes consistent with long-standing venous insufficiency. Patient also presents with a myelitis of the great toe with ulceration. On examination, there is increased swelling of the great toe concerning for subcutaneous abscess. Patient has no significant complaints of pain. Past History Past Medical History: PVD, other Social history: no significant social history (venous insufficiency) Family history: no significant family history Medications and Allergies Allergies Allergy/AdvReac Type Severity Reaction Status Date / Time cefoxitin Allergy Itching Verified 08/01/17 09:41 lisinopril AdvReac Unknown Verified 08/01/17 09:29 antibotic Allergy Unknown Uncoded 08/01/17 09:30 Home Medications Medication Instructions Recorded Confirmed Last Taken Type Aspirin [Aspirin BABY CHEW TAB] 81 mg PO QDAY #30 tab.chew 06/15/17 08/01/17 Unknown Rx Carvedilol [Coreg] 6.25 mg PO BID #30 tablet 06/15/17 08/01/17 Unknown Rx Cephalexin [Keflex] 1,000 mg PO Q6HR #304 capsule 06/15/17 08/01/17 Unknown Rx Furosemide 40 mg PO DAILY #30 06/15/17 08/01/17 Unknown Rx Lisinopril 20 mg PO DAILY #30 06/15/17 08/01/17 Unknown Rx Norvasc 5 mg PO DAILY #30 06/15/17 08/01/17 Unknown Rx Potassium Citrate ER 20 mg PO DAILY #30 06/15/17 08/01/17 Unknown Rx Spironolactone [Aldactone] 12.5 mg PO QDAY #30 tablet 06/15/17 08/01/17 Unknown Rx oxyCODONE /ACETAMINOPHEN [Percocet 1 tab PO Q6H PRN #10 tablet 06/15/17 Unknown Rx 5/325 mg] Active Meds: Active Medications Acetaminophen (Tylenol) 650 mg PO Q4H PRN PRN Reason: Pain, Mild (1-3) Last Admin: 08/02/17 04:17 Dose: 650 mg Amlodipine Besylate (Norvasc) 5 mg PO DAILY [facility] Last Admin: 08/02/17 09:13 Dose: 5 mg Aspirin (Baby Aspirin) 81 mg PO QDAY [facility] Last Admin: 08/02/17 09:27 Dose: 81 mg Carvedilol (Coreg) 6.25 mg PO BID [facility] Last Admin: 08/02/17 09:13 Dose: 6.25 mg Furosemide (Lasix) 40 mg PO DAILY [facility] Last Admin: 08/02/17 09:13 Dose: 40 mg Levofloxacin/Dextrose (Levaquin 750mg/150ml) 750 mg in 150 mls @ 100 mls/hr IV Q24HR [facility] Last Admin: 08/02/17 09:12 Dose: 100 mls/hr Vancomycin HCl 2,000 mg/ (Sodium Chloride) 520 mls @ 250 mls/hr IV Q8H [facility] Last Admin: 08/02/17 09:12 Dose: 250 mls/hr Influenza Virus Vaccine Quadrival (Fluarix Quad [id number](36 Mos+) 0.5 ml IM .ONCE ONE Stop: 08/02/17 12:01 Potassium Chloride (K-Dur) 20 meq PO DAILY [facility] Last Admin: 08/02/17 09:13 Dose: 20 meq Spironolactone (Aldactone) 12.5 mg PO QDAY [facility] Last Admin: 08/02/17 09:12 Dose: 12.5 mg Vancomycin HCl (Vancomycin Pharmacy To Dose) 1 each IV PKCONSULT [facility] PRN Reason: Protocol Zolpidem Tartrate (Ambien) 5 mg PO QHS [facility] Last Admin: 08/02/17 02:00 Dose: 5 mg Review of Systems All systems: negative Exam - Constitutional Vitals: Temp Pulse Resp BP Pulse Ox 99.5 F 89 22 144/65 93 08/02/17 07:40 08/02/17 07:40 08/02/17 07:40 08/02/17 07:40 08/02/17 07:40 General appearance: Present: no acute distress - EENT Eyes: Present: PERRL ENT: hearing intact - Neck Neck: Present: supple, normal ROM - Respiratory Respiratory effort: normal - Extremities Extremities: abnormal (dusky discoloration to the distal phalanges of his left foot with +3 edema extending from the foot to the ankle. Chronic lymphedema is also present.) Extremity abnormal: pulses diminished - Abdominal General gastrointestinal: Present: deferred Male genitourinary: Present: deferred - Rectal Rectal Exam: deferred - Integumentary Integumentary: Present: clear - Musculoskeletal Musculoskeletal: strength equal bilaterally - Psychiatric Psychiatric: appropriate mood/affect, cooperative - Neurologic Neurologic: no focal deficits Results - Labs CBC & Chem 7: 08/01/17 10:21 12 10:21 Labs: Abnormal lab results 08/01/17 08/01/17 Range/Units 10:21 12:41 Glucose 105 H (75-100) mg/dL NT-Pro-B Natriuret Pep 1302 H (0-900) pg/mL Albumin 3.5 L (3.9-5) g/dL Assessment and Plan Patient with a history of venous insufficiency and peripheral vascular disease with superimposed osteomyelitis of his great toe and likely a subcutaneous abscess. He will need consultation with the podiatry or orthopedics surgery for further management of his foot infection. Patient will be scheduled for arterial duplex to determine if he has adequate blood flow to heal distal wounds. In addition, the patient may need evaluation of his deep venous system with venogram and likely stent placement secondary to extrinsic compression of his iliac veins causing asymmetric left leg swelling.
[2017-08-02] MEDS ORDERED: Fluarix Quad 2017-2018(36 MOS+ IM ONE (12:00)
--- NOTE | 2017-08-02 14:59 | Progress Note ---
Assessment and Plan - Cellulitis with osteomyelitis of the left fourth Continue iv Levaquin. Add Vanc. - HTN controlled - Acute on Chronic systolic heart failure Continue with diuretic, ACEI, Beta steven - PAD and venous insufficiency - Chronic pain continue with narcotic Subjective Date of service: 08/02/17 Principal diagnosis: cellulitis of the left foot, osteomyelitis of the left toe , CHF Interval history: Pain the left big toe. Denies any fever, no chest pain or shortness of breath. Objective - Exam Narrative Exam: GEN: Well-developed well-nourished. ill-appearing HEENT: NC/AT, PERRL. No rhionorrhea NECK: Supple, no adenopathy, no thyromegaly, no JVD CVS/HEART: RRR, S1S2 normal. No R/M/G. Pulses present bilaterally CHEST/LUNGS: Symmetrical chest expansion, good air entry bilaterally, CTA [place]vin GI/Abdomen: Soft, NTND, good bowel sounds, no guarding or rebound /Bladder: No suprapubic tenderness, no CVA EXT: Cellulitis of the left fourth Skin: No obvious rash. MSK: Spontaneous movement x 4 limbs Neuro: A & O x 3. None focal. seen moving all limbs Psych: Calm. No SI or HI - Constitutional Vitals: Vital Signs - 12hr 08/02/17 08/02/17 05:21 07:40 Temperature 100.3 F H 99.5 F Pulse Rate 89 Respiratory 18 22 Rate Blood Pressure 116/59 144/65 O2 Sat by Pulse 93 Oximetry - Labs CBC & Chem 7: 08/01/17 10:21 08/01/17 10:21
--- NOTE | 2017-08-02 15:55 | Consultation ---
History of Present Illness - Reason for Consult Consult date: 08/02/17 cellulitis Requesting physician: KALPESH REEDER - History of Present Illness 57-year-old man with a history of hypertension, chronic venous insufficiency and chronic left great toe ulcer for 3 years; well known to ID admitted initially in May 2017 due to Left great toe ulcer / chronic osteomyelitis, CRP=0.3, underwent bone biopsy + MSSA. A1c 5.8. X-ray of the foot showed first great toe osteomyelitis and soft tissue swelling. CT of the foot showed left great toe osteomyelitis and some soft tissue swelling. Ultrasound did not show any stenosis. 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 Patient was discharged on po keflex 1000 mg PO q6 hours for 6 weeks from 06/12 until 07/23/17. Patient did not take the rx. Readmitted due to worsening left great toe swelling, tenderness and drainage of purulence. Swelling and tenderness extending to the left leg. In the emergency room, temp 97.8, heart rate 85, respirations 18, blood pressure 146/76. WBC 10.4. Creat 1. Microbiology: Blood cultures: Wound cultures: 06/11 tissue toe pending Current Antimicrobials: Levaquin Vancomycin Previous Antimicrobials: Past History Past Medical History: PVD, other Social history: no significant social history (venous insufficiency) Family history: no significant family history Medications and Allergies Allergies Allergy/AdvReac Type Severity Reaction Status Date / Time cefoxitin Allergy Itching Verified 08/01/17 09:41 lisinopril AdvReac Unknown Verified 08/01/17 09:29 antibotic Allergy Unknown Uncoded 08/01/17 09:30 Home Medications Medication Instructions Recorded Confirmed Last Taken Type Aspirin [Aspirin BABY CHEW TAB] 81 mg PO QDAY #30 tab.chew 06/15/17 08/01/17 Unknown Rx Carvedilol [Coreg] 6.25 mg PO BID #30 tablet 06/15/17 08/01/17 Unknown Rx Cephalexin [Keflex] 1,000 mg PO Q6HR #304 capsule 06/15/17 08/01/17 Unknown Rx Furosemide 40 mg PO DAILY #30 06/15/17 08/01/17 Unknown Rx Lisinopril 20 mg PO DAILY #30 06/15/17 08/01/17 Unknown Rx Norvasc 5 mg PO DAILY #30 06/15/17 08/01/17 Unknown Rx Potassium Citrate ER 20 mg PO DAILY #30 06/15/17 08/01/17 Unknown Rx Spironolactone [Aldactone] 12.5 mg PO QDAY #30 tablet 06/15/17 08/01/17 Unknown Rx oxyCODONE /ACETAMINOPHEN [Percocet 1 tab PO Q6H PRN #10 tablet 06/15/17 Unknown Rx 5/325 mg] Active Meds: Active Medications Acetaminophen (Tylenol) 650 mg PO Q4H PRN PRN Reason: Pain, Mild (1-3) Last Admin: 08/02/17 04:17 Dose: 650 mg Amlodipine Besylate (Norvasc) 5 mg PO DAILY [facility] Last Admin: 08/02/17 09:13 Dose: 5 mg Aspirin (Baby Aspirin) 81 mg PO QDAY [facility] Last Admin: 08/02/17 09:27 Dose: 81 mg Carvedilol (Coreg) 6.25 mg PO BID [facility] Last Admin: 08/02/17 09:13 Dose: 6.25 mg Furosemide (Lasix) 40 mg PO DAILY [facility] Last Admin: 08/02/17 09:13 Dose: 40 mg Levofloxacin/Dextrose (Levaquin 750mg/150ml) 750 mg in 150 mls @ 100 mls/hr IV Q24HR [facility] Last Admin: 08/02/17 09:12 Dose: 100 mls/hr Vancomycin HCl 1,750 mg/ (Sodium Chloride) 517.5 mls @ 333.333 mls/hr IV Q8H [facility] Potassium Chloride (K-Dur) 20 meq PO DAILY [facility] Last Admin: 08/02/17 09:13 Dose: 20 meq Spironolactone (Aldactone) 12.5 mg PO QDAY [facility] Last Admin: 08/02/17 09:12 Dose: 12.5 mg Vancomycin HCl (Vancomycin Pharmacy To Dose) 1 each IV PKCONSULT [facility] PRN Reason: Protocol Zolpidem Tartrate (Ambien) 5 mg PO QHS [facility] Last Admin: 08/02/17 02:00 Dose: 5 mg Physical Examination - Physical Exam Narrative exam: General appearance: Alert in NAD, conversant Eyes: anicteric sclerae, moist conjunctivae; no lid-lag; PERRLA HENT: Atraumatic; oropharynx clear with moist mucous membranes and no mucosal ulcerations/no oral thrush; normal hard and soft palate. Normal external ears. Neck: Trachea midline; supple, no thyromegaly or lymphadenopathy Lungs: CTA, with normal respiratory effort and no intercostal retractions CV: RRR, no murmurs Abdomen: Soft, non-tender; no masses or hepatosplenomegaly Extremities: left leg edema, erythema and tenderness, left great toe marked edema, skin sloughing and ulcer draining purulence. Skin: Normal temperature, turgor and texture; no rash, ulcers or subcutaneous nodules Psych: Appropriate affect, alert and oriented to person, place and time. Neuro: alert and oriented x 3. Moving all extermities Lines: No CVL / PICC - Constitutional Vitals: Vital Signs Temp Pulse Resp BP Pulse Ox 99.5 F 89 22 144/65 93 08/02/17 07:40 08/02/17 07:40 08/02/17 07:40 08/02/17 07:40 08/02/17 07:40 Temperature -Last 24 Hours Temperature 99.5 F Temperature 100.3 F Temperature 99.6 F Results - Labs CBC & Chem 7: 08/01/17 10:21 08/01/17 10:21 Assessment and Plan Assessment: 1) Left great toe osteomyelitis/abscess-known to have MSSA in bone tissue. Patient did not take keflex for 6 weeks as ordered. manager investigations was unable to find any funding for his IV abx last admission. 2) left leg cellulitis 3) PVD 4) Venous insufficiency 5) Non-compliant with treatment Plan: -obtain C-reactive protein (CRP) -Dr Villela consult -pt demanding to have I+D and save his toe as possible. He wants to avoid amputation. I explained to him, multiple times, that even with 6 weeks of IV abx and wound care, infection may not be able to be cured and amputation would be required. I am concerned that the infection may spread to the rest of his foot. -vascular eval Thank you Dr Reeder for your consultation, will follow up with you. Cathi Garcia MD Infectious Diseases Specialist [facility], [place] [facility] M [phone] O [phone]
[2017-08-02] MEDS: VANCOMYCIN 1,750 MG in NACL 0.9% 500 ML 500 ML IV SCH (18:10)
[2017-08-03] MEDS: VANCOMYCIN 1,750 MG in NACL 0.9% 500 ML 500 ML IV SCH ×2 (03:10→11:00)
--- NOTE | 2017-08-03 07:26 | Vascular Lab Report ---
LEFT LOWER EXTREMITY ARTERIAL DUPLEX: REASON FOR EXAM: Peripheral arterial disease. COMMENTS ON THE RIGHT: Triphasic waveforms are seen distally. COMMENTS ON THE LEFT: Triphasic waveforms are seen proximally. Triphasic waveforms are seen distally. No significant velocity gradients are identified. No focal significant plaque is identified. Findings are consistent with normal perfusion. Findings are consistent with the ability to heal distal wounds. IMPRESSION: RIGHT: Normal distal arterial flow. LEFT:Essentially normal arterial flow.
--- NOTE | 2017-08-03 07:27 | Vascular Lab Report ---
LOWER EXTREMITY ARTERIAL PHYSIOLOGIC STUDY: REASON FOR EXAM: Peripheral arterial disease. COMMENTS ON THE RIGHT: Ankle brachial index is 1.15. This value is normal. Pulse volume recording at the level of the ankle is normal. Exercise testing was not done. COMMENTS ON THE LEFT: Ankle brachial index is 1.06. This value is normal. Pulse volume recording at the level of the ankle is normal. Exercise testing was not done. IMPRESSION: RIGHT: No hemodynamically significant arterial disease. LEFT:No hemodynamically significant arterial disease.
[2017-08-03 09:11] VITALS: BP 130/77
[2017-08-03] MEDS: TYLENOL PO PRN (09:21)
[2017-08-03] MEDS: ALDACTONE PO SCH (09:22)
[2017-08-03] MEDS: COREG PO SCH (09:22)
[2017-08-03] MEDS: LASIX PO SCH (09:22)
[2017-08-03] MEDS: BABY ASPIRIN PO SCH (09:22)
[2017-08-03] MEDS: LEVAQUIN 750MG/150ML 750 MG/150 ML BAG IV SCH (09:23)
[2017-08-03] MEDS: NORVASC PO SCH (09:23)
[2017-08-03] MEDS: K-DUR PO SCH (09:23)
--- NOTE | 2017-08-03 10:42 | Consultation ---
History of Present Illness Consult date: 08/03/17 Reason for consult: other (Left great toe abscess) - History of present illness History of present illness: 57 yo male with left great toe abscess and osteomyelitis of left great toe. He was recently discharged on Keflex per Dr. Narayan but never got this filled because "I'm allergic to it." Prior arterial dopplers revealed no flow limiting disease. He states that he is pre-diabetic. Past History Past Medical History: PVD, other Social history: no significant social history (venous insufficiency) Family history: no significant family history Medications and Allergies Allergies Allergy/AdvReac Type Severity Reaction Status Date / Time cefoxitin Allergy Itching Verified 08/01/17 09:41 lisinopril AdvReac Unknown Verified 08/01/17 09:29 antibotic Allergy Unknown Uncoded 08/01/17 09:30 Home Medications Medication Instructions Recorded Confirmed Last Taken Type Aspirin [Aspirin BABY CHEW TAB] 81 mg PO QDAY #30 tab.chew 06/15/17 08/01/17 Unknown Rx Carvedilol [Coreg] 6.25 mg PO BID #30 tablet 06/15/17 08/01/17 Unknown Rx Cephalexin [Keflex] 1,000 mg PO Q6HR #304 capsule 06/15/17 08/01/17 Unknown Rx Furosemide 40 mg PO DAILY #30 06/15/17 08/01/17 Unknown Rx Lisinopril 20 mg PO DAILY #30 06/15/17 08/01/17 Unknown Rx Norvasc 5 mg PO DAILY #30 06/15/17 08/01/17 Unknown Rx Potassium Citrate ER 20 mg PO DAILY #30 06/15/17 08/01/17 Unknown Rx Spironolactone [Aldactone] 12.5 mg PO QDAY #30 tablet 06/15/17 08/01/17 Unknown Rx oxyCODONE /ACETAMINOPHEN [Percocet 1 tab PO Q6H PRN #10 tablet 06/15/17 Unknown Rx 5/325 mg] Active Meds: Active Medications Acetaminophen (Tylenol) 650 mg PO Q4H PRN PRN Reason: Pain, Mild (1-3) Last Admin: 08/03/17 09:21 Dose: 650 mg Amlodipine Besylate (Norvasc) 5 mg PO DAILY [facility] Last Admin: 08/03/17 09:23 Dose: 5 mg Aspirin (Baby Aspirin) 81 mg PO QDAY [facility] Last Admin: 08/03/17 09:22 Dose: 81 mg Carvedilol (Coreg) 6.25 mg PO BID [facility] Last Admin: 08/03/17 09:22 Dose: 6.25 mg Furosemide (Lasix) 40 mg PO DAILY [facility] Last Admin: 08/03/17 09:22 Dose: 40 mg Levofloxacin/Dextrose (Levaquin 750mg/150ml) 750 mg in 150 mls @ 100 mls/hr IV Q24HR [facility] Last Admin: 08/03/17 09:23 Dose: 100 mls/hr Vancomycin HCl 1,750 mg/ (Sodium Chloride) 517.5 mls @ 333.333 mls/hr IV Q8H [facility] Last Admin: 08/03/17 03:10 Dose: 333.333 mls/hr Influenza Virus Vaccine Quadrival (Fluarix Quad [id number](36 Mos+) 0.5 ml IM .ONCE ONE Stop: 08/03/17 12:01 Potassium Chloride (K-Dur) 20 meq PO DAILY [facility] Last Admin: 08/03/17 09:23 Dose: 20 meq Spironolactone (Aldactone) 12.5 mg PO QDAY [facility] Last Admin: 08/03/17 09:22 Dose: 12.5 mg Vancomycin HCl (Vancomycin Pharmacy To Dose) 1 each IV PKCONSULT [facility] PRN Reason: Protocol Zolpidem Tartrate (Ambien) 5 mg PO QHS [facility] Last Admin: 08/02/17 23:21 Dose: 5 mg Review of Systems All systems: negative Exam Vital Signs Temp Pulse Resp BP Pulse Ox 97.8 F 85 18 146/76 98 08/01/17 09:30 08/01/17 09:30 08/01/17 09:30 08/01/17 09:30 08/01/17 09:30 - General physical appearance Positive: well developed, well nourished, no distress - Eyes Positive: PERRL, normal occular movement - ENT Positive: normal pinna, normal nares, normal mucosa, no hearing loss, no congestion - Neck Positive: no masses, no bruits, trachea midline, no venous distension - Respiratory Positive: normal expansion, normal respiratory effort, clear to auscultation - Cardiovascular Rhythm: regular Heart Sounds: Present: S1 & S2. Absent: rub, click - Extremities Extremities: abnormal (The left foot has 3+ edema. Left DP is 2+ but the left PT is non-palpable. The left great toe has a large amount of keratinized tissue with pus exuding from the dorsum of the toe. There is also a linear ulceration on the plantar aspect of his left great toe at the MTP joint.) Peripheral Pulses: abnormal (See extremities.) - Breasts Breasts: deferred - Abdomen Abdomen: Present: soft, bowel sounds normal. Absent: tender, distended Hernia: none - Genitourinary Male Genitourinary: deferred - Integumentary other (See extremities.) - Neurologic Neurologic: alert and oriented to time, place and person, motor strength and sensation are grossly intact - Musculoskeletal normal gait, normal posture - Psychiatric Psychiatric: appropriate mood/affect, intact judgment & insight Results - Labs 08/01/17 10:21 08/01/17 10:21 Abnormal lab results 08/02/17 Range/Units 16:45 C-Reactive Protein 5.40 H (0.00-1.30) mg/dL Assessment and Plan - Patient Problems (1) Abscess of left great toe Current Visit: Yes Status: Acute Plan to address problem: 1) NPO 2) I&D in the OR today
--- NOTE | 2017-08-03 11:02 | Progress Note ---
Assessment and Plan The patient presents with first left toe infection superimposed on osteomyelitis. His symptoms are worsened by asymmetric left lower extremity swelling which is likely secondary to May Thurner. Discussed with patient possibly evaluating and treating his deep venous disease. We will continue to discuss with patient as he wants to get through his great toe surgery first but he will likely need evaluation and treatment of his deep venous system. Subjective Date of service: 08/03/17 Principal diagnosis: cellulitis of the left foot, osteomyelitis of the left toe , CHF Interval history: Patient with a history of left lower cavity cellulitis and left lower cavity swelling now with infected left great toe. He is being taken to the OR for debridement today. He has underlying osteomyelitis. His arterial ultrasound is negative for any significant disease. His venous ultrasound demonstrates no acute DVT. Given his clinical presentation and repeated left leg swelling and he is upright, the patient likely has underlying venous insufficiency contributing to his issues. Objective - Constitutional Vitals: Vital Signs - 12hr 08/02/17 08/03/17 08/03/17 23:23 04:13 08:43 Temperature 98.6 F 99.2 F Pulse Rate 86 78 86 Respiratory 19 20 Rate Blood Pressure 134/62 128/71 130/77 O2 Sat by Pulse 99 96 Oximetry General appearance: Present: no acute distress - EENT Eyes: PERRL ENT: hearing intact - Neck Neck: supple - Respiratory Respiratory effort: normal - Breasts Breasts: deferred Extremities: abnormal Extremity abnormal: edema - Gastrointestinal General gastrointestinal: Present: deferred Rectal Exam: deferred - Genitourinary Male genitourinary: deferred - Psychiatric Psychiatric: appropriate mood/affect, cooperative - Labs CBC & Chem 7: 08/01/17 10:21 08/01/17 10:21 Labs: Abnormal lab results 08/02/17 Range/Units 16:45 C-Reactive Protein 5.40 H (0.00-1.30) mg/dL
--- NOTE | 2017-08-03 11:26 | Progress Note ---
Assessment and Plan Assessment: 1) Left great toe osteomyelitis/abscess-known to have MSSA in bone tissue. Patient did not take keflex for 6 weeks as ordered. application services manager was unable to find any funding for his IV abx last admission. CRP=5.4 2) left leg cellulitis 3) PVD 4) Venous insufficiency 5) Non-compliant with treatment Plan: -start cefazolin IV - he tolerated it well last time -stop clinda and vanco -to the OR today for I+D -consider repeating MRI -vascular eval Thank you Dr Turner for your consultation, will follow up with you. Cathi Garcia MD Infectious Diseases Specialist [facility] ([facility]) M [phone] O [phone] Subjective Date of service: 08/03/17 Principal diagnosis: cellulitis of the left foot, osteomyelitis of the left toe , CHF Interval history: Feels ok, no complaints, tmax 100.3 yesterday. Microbiology: Blood cultures: Wound cultures: 06/11 tissue toe pending Current Antimicrobials: Levaquin Vancomycin Objective - Exam Narrative Exam: General appearance: Alert in NAD, conversant Eyes: anicteric sclerae, moist conjunctivae; no lid-lag; PERRLA HENT: Atraumatic; oropharynx clear with moist mucous membranes and no mucosal ulcerations/no oral thrush; normal hard and soft palate. Normal external ears. Neck: Trachea midline; supple, no thyromegaly or lymphadenopathy Lungs: CTA, with normal respiratory effort and no intercostal retractions CV: RRR, no murmurs Abdomen: Soft, non-tender; no masses or hepatosplenomegaly Extremities: left leg edema, erythema and tenderness, left great toe marked edema, skin sloughing and ulcer draining purulence. Skin: Normal temperature, turgor and texture; no rash, ulcers or subcutaneous nodules Psych: Appropriate affect, alert and oriented to person, place and time. Neuro: alert and oriented x 3. Moving all extermities Lines: No CVL / PICC - Constitutional Vitals: Vital Signs Temp Pulse Resp BP Pulse Ox 99.2 F 86 20 130/77 96 08/03/17 08:43 08/03/17 08:43 08/03/17 08:43 08/03/17 08:43 08/03/17 08:43 Temperature -Last 24 Hours Temperature 99.2 F Temperature 98.6 F Temperature 98.2 F Temperature 99.4 F - Labs CBC & Chem 7: 08/01/17 10:21 08/01/17 10:21 Labs: Abnormal lab results 08/02/17 Range/Units 16:45 C-Reactive Protein 5.40 H (0.00-1.30) mg/dL
[2017-08-03] MEDS ORDERED: Fluarix Quad 2017-2018(36 MOS+ IM ONE (12:00)
[2017-08-03] MEDS ORDERED: ANCEF/STERILE WATER 2 GM/20 ML 2 GM/20 ML SYRINGE IV SCH (14:00)
[2017-08-03] MEDS ORDERED: ceFAZolin 2 GM in NACL 0.9% 100 ML IV SCH (14:00)
--- NOTE | 2017-08-03 14:32 | Progress Note ---
Assessment and Plan Assessment and plan: Patient is a 57-year-old man with a history of hypertension, chronic venous insufficiency and chronic left great toe ulcer for 3 years, who was initially admitted and discharged from the hospital in May 2017 and at that time was noted to have first great toe osteomyelitis and soft tissue swelling of the left lower extremity and was discharged home on Keflex 1000 mg by mouth every 6 hours for 6 weeks but unfortunately did not take the medications. The patient admits that this is his mistake. As he confused that the medication that he was allergic to. Unfortunately he did not seek attention at that time. Returns to the hospital with swelling and tenderness of the left leg worsening from last admission. Bone biopsy at that time was positive for MSSA Osteomyelitis with cellulitis of the left large toe * CT of the left foot showed osteomyelitis on 06/09/17 * Initially treated with clinda and vancomycin now on IV Cefazolin * Patient uninsured and does not have funding for Abx IV * I/D Metabolic syndrome with a BMI of 31.5 hemoglobin A1c of 5.8 * Continue ADA diet. Nutrition consult Hypertension * Controlled Noncompliance * Stable Peripheral Neuropathy * Ultrasound negative for stenosis and DVT PVD/Venous insufficiency with Left lower ext edema * Vascular following. Stable Systolic Heart failure * ECHO of 06/08/17 showed EF of 15-20 % with systolic dysfunction Chronic Pain syndrome * Pain control DVT/GI prophy Plan of care discussed with patient. History Interval history: Patient seen and examined denies any chest pain nausea vomiting or diarrhea. Denies any fever. Still with swelling of the left large toe and swelling over the left Hospitalist Physical - Physical exam Narrative exam: VITAL SIGNS: Reviewed. GENERAL: The patient appeared well nourished and normally developed. Vital signs as documented. HEAD: No signs of head trauma. Temporal wasting EYES: Pupils are equal. Extraocular motions intact. EARS: Hearing grossly intact. MOUTH: Oropharynx is normal. NECK: No adenopathy, no JVD. CHEST: Chest with clear breath sounds bilaterally. No wheezes, rales, or rhonchi. CARDIAC: Regular rate and rhythm. S1 and S2, without murmurs, gallops, or rubs. VASCULAR: Left lower extremity dependent edema +1. Peripheral pulses normal and equal in all extremities. ABDOMEN: Soft, without detectable tenderness. No sign of distention. No rebound or guarding, and no masses palpated. Bowel Sounds normal. MUSCULOSKELETAL: Gait is not assessed at this time due to abnormality of the large left toe swollen, fluffy and disfigured. Extremities without clubbing, cyanosis left lower extremity pitting edema +1 NEUROLOGIC EXAM: Alert and oriented x 3. No focal sensory or strength deficits. Speech normal. Follows commands. PSYCHIATRIC: Mood normal. SKIN: Chronic changes in the left lower extremity with left large toe swollen lateral laceration of the crevice. Warm to the touch - Constitutional Vitals: Temp Pulse Resp BP Pulse Ox 99.2 F 86 20 130/77 96 08/03/17 08:43 08/03/17 08:43 08/03/17 08:43 08/03/17 08:43 08/03/17 08:43 General appearance: Present: no acute distress Results - Labs CBC & Chem 7: 08/01/17 10:21 08/01/17 10:21 Labs: Laboratory Last Values WBC 10.4 K/mm3 (4.5-11.0) 08/01/17 10:21 RBC 4.62 M/mm3 (3.65-5.03) 08/01/17 10:21 Hgb 13.3 gm/dl (11.8-15.2) 08/01/17 10:21 Hct 39.7 % (35.5-45.6) 08/01/17 10:21 MCV 86 fl (84-94) 08/01/17 10:21 MCH 29 pg (28-32) 08/01/17 10:21 MCHC 33 % (32-34) 08/01/17 10:21 RDW 13.9 % (13.2-15.2) 08/01/17 10:21 Plt Count 408 K/mm3 (140-440) 08/01/17 10:21 Lymph % (Auto) 18.8 % (13.4-35.0) 08/01/17 10:21 Milam % (Auto) 10.9 % (0.0-7.3) H 08/01/17 10:21 Eos % (Auto) 2.6 % (0.0-4.3) 08/01/17 10:21 Baso % (Auto) 1.2 % (0.0-1.8) 08/01/17 10:21 Lymph # 2.0 K/mm3 (1.2-5.4) 08/01/17 10:21 Milam # 1.1 K/mm3 (0.0-0.8) H 08/01/17 10:21 Eos # 0.3 K/mm3 (0.0-0.4) 08/01/17 10:21 Baso # 0.1 K/mm3 (0.0-0.1) 08/01/17 10:21 Seg Neutrophils % 66.5 % (40.0-70.0) 08/01/17 10:21 Seg Neutrophils # 6.9 K/mm3 (1.8-7.7) 08/01/17 10:21 Sodium 142 mmol/L (137-145) 08/01/17 10:21 Potassium 4.4 mmol/L (3.6-5.0) 08/01/17 10:21 Chloride 102.0 mmol/L (98-107) 08/01/17 10:21 Carbon Dioxide 26 mmol/L (22-30) 08/01/17 10:21 Anion Gap 18 mmol/L 08/01/17 10:21 BUN 15 mg/dL (9-20) 08/01/17 10:21 Creatinine 1.0 mg/dL (0.8-1.5) 08/01/17 10:21 Estimated GFR > 60 ml/min 08/01/17 10:21 BUN/Creatinine Ratio 15 % 08/01/17 10:21 Glucose 105 mg/dL (75-100) H 08/01/17 10:21 Lactic Acid 1.20 mmol/L (0.7-2.0) 08/01/17 12:41 Calcium 8.9 mg/dL (8.4-10.2) 08/01/17 10:21 Total Bilirubin 0.40 mg/dL (0.1-1.2) 08/01/17 10:21 AST 14 units/L (5-40) 08/01/17 10:21 ALT 14 units/L (7-56) 08/01/17 10:21 Alkaline Phosphatase 88 units/L (35-129) 08/01/17 10:21 C-Reactive Protein 5.40 mg/dL (0.00-1.30) H 08/02/17 16:45 NT-Pro-B Natriuret Pep 1302 pg/mL (0-900) H 08/01/17 12:41 Total Protein 7.9 g/dL (6.3-8.2) 08/01/17 10:21 Albumin 3.5 g/dL (3.9-5) L 08/01/17 10:21 Albumin/Globulin Ratio 0.8 % 08/01/17 10:21 Vancomycin Trough 32.6 ug/mL (5.0-20.0) H 08/03/17 08:55 - Imaging and Cardiology Venous US: image reviewed (reviewed and negative)
== END 2017-08-03 15:15 | disposition left against medical advice (07) | DRG 539 ==
LOC: ED 09:24 → 3A 14:35
PROVIDERS: ADMIT Internal Medicine; ATTEND Internal Medicine
PROC: 3E0234Z Introduction of Serum, Toxoid and Vaccine into Muscle, Percutaneous Approach (ICD-10-PCS; principal; 2017-08-02)
DX: M86.172 Other acute osteomyelitis, left ankle and foot (principal); I50.23 Acute on chronic systolic (congestive) heart failure; L03.116 Cellulitis of left lower limb; L02.612 Cutaneous abscess of left foot; Z88.8 Allergy status to other drugs, medicaments and biological substances; Z23 Encounter for immunization; I11.0 Hypertensive heart disease with heart failure; Z79.82 Long term (current) use of aspirin; I73.9 Peripheral vascular disease, unspecified; G62.9 Polyneuropathy, unspecified; Z91.19 Patient's noncompliance with other medical treatment and regimen; E88.81 Metabolic syndrome and other insulin resistance; G89.4 Chronic pain syndrome
CPT/HCPCS: 36415; 80053; 80202; 82140; 83880; 85025; 86140; 90686; 93922; 96365; 96367; 96375; J0690; J1940; J1956; J2270; J2405; J3370; J7040

== ENCOUNTER 2018-12-23 07:02 | Day surgery (SDC) | payer MEDICAID ==
[2018-12-23] MEDS ORDERED: LOPRESSOR ONE (07:45)
[2018-12-23 08:23] LABS: Blood Urea Nitrogen 22 mg/dL (9-20)
[2018-12-23] MEDS ORDERED: ATROPINE 0.1% (CARDIAC) ONE (08:58)
[2018-12-23] MEDS ORDERED: NITROSTAT SL ONE (08:58)
[2018-12-23] MEDS ORDERED: LOPRESSOR IV ONE (08:58)
[2018-12-23] MEDS ORDERED: NITROSTAT SL NR (09:30)
[2018-12-23] MEDS ORDERED: LOPRESSOR PO NR ×2 (09:30→09:35)
[2018-12-23 09:35] VITALS: BP 99/63
--- NOTE | 2018-12-23 12:15 | Cat Scan Report ---
LIMITED CT OF THE CHEST PER CT CORONARY ANGIOGRAPHY PROTOCOL: History: Chest pain. Limited CT of the chest per CT coronary angiography protocol is submitted. The cardiac portion of the exam has been previously interpreted by the [employer] Manager. The included portions of the lungs appear clear without evidence for nodule, mass or infiltrate. The included pleural spaces are clear. No mediastinal or hilar adenopathy is evident. Included upper abdomen and solid abdominal organs are grossly within normal limits. Mild bilateral gynecomastia is noted. IMPRESSION: Unremarkable limited CT of the chest as noted.
--- NOTE | 2018-12-23 18:35 | CT Calcium Scoring Report ---
Coronary Calcium Score Date of service: 12/23/18 Procedure: High-resolution computed tomographic imaging of the chest was performed on12/23/18 with particular attention paid to the coronary arteries. Images from the examination were analyzed for the presence and extent of coronary artery calcification, using coronary calcium quantification software. The patient tolerated the procedure well and there were no complications. The results of the coronary calcification analysis are provided below. The patient scores are compared with published data related to scores for people of a similar age and the same gender. - Findings Total Agatson Score: 0 Findings: cardiac CTA: Indication congestive heart failure. Informed consent was obtained. Procedure: The patient was brought to the cardiac CT angiography laboratory at [facility] in stable condition after a [address] angiography was performed on the 64 slice scanner using the standard protocol. Heart rate was regulated by beta-blockade. Sublingual nitroglycerin was administered prior to imaging. A coronary artery calcium score the of the echo at still in method was performed. A separate radiology assessment of the noncardiac structures in the field of view will be provided. After data acquisition and reconstruction at the computer console the images were post processed and reoriented at the workstation. Volume rendered images, multiplanar reformatted images, and maximum intensity images were generated and reviewed. Multiple phases of the cardiac cycle were assessed as necessary for image interpretation. The cardiac chamber dimensions are of normal size. Cardiac wall thickness is normal. The interventricular and interatrial septum are normal. There are no intracardiac masses. The mitral and aortic valves appear normal. There is no pericardial effusion. The left atrial appendage appears normal. The superior and inferior vena cava and the pulmonary artery in the field of view appear normal The pulmonary veins enter the left atrium appropriately Coronary angiography reveals a right dominant system. The coronary arteries originate appropriately from their respective coronary cusps. The right coronary artery is normal. The left main coronary artery, the left anterior descending coronary artery, the diagonal branches, the circumflex coronary artery, and the obtuse marginal branches appear normal. cardiac CT angiography demonstrates essentially normal coronary arteries. The procedure was well-tolerated. There were no complications.
== END 2018-12-23 09:45 | disposition home or self-care (01) ==
LOC: CATHLABREC 07:02 → EDSTATUS 07:45 → CATHLABREC 09:45
PROVIDERS: ATTEND Internal Medicine Cardiovascular Disease
DX: I11.0 Hypertensive heart disease with heart failure (principal); I50.22 Chronic systolic (congestive) heart failure; N62 Hypertrophy of breast; M86.9 Osteomyelitis, unspecified; I25.10 Atherosclerotic heart disease of native coronary artery without angina pectoris; E11.51 Type 2 diabetes mellitus with diabetic peripheral angiopathy without gangrene; E78.00 Pure hypercholesterolemia, unspecified; Z98.890 Other specified postprocedural states; Z79.899 Other long term (current) drug therapy; Z79.82 Long term (current) use of aspirin; Z88.8 Allergy status to other drugs, medicaments and biological substances
CPT/HCPCS: 36415; 75574; 82565; 84520; Q9967; J0461